=== PATIENT | female | born 1945 | race Caucasian/White ===

== ENCOUNTER → 2019-12-09 10:15 | Outpatient (CLI) | payer MEDICARE, SELFPAY ==
[2019-12-10 20:59] LABS: COVID19 Sendout Not Detected (Not Detect)
== END ==
PROVIDERS: Family Provider Internal Medicine; PCP Family Medicine; Visit Provider Nurse Practitioner
DX: Z01.812 Encounter for preprocedural laboratory examination (principal)
CPT/HCPCS: 87635

== ENCOUNTER 2019-12-12 07:37 | Day surgery (SDC) | payer MEDICARE, SELFPAY ==
[2019-12-12] VITALS (7 sets, daily range): BP systolic 93–108; BP diastolic 53–67; PULSE 59–87; RESP 11–16; TEMP 35.8–36.6; O2SAT 96–99; BMI 25.8
--- NOTE | 2019-12-12 08:01 | PM.HP.1 ---
History of Present Illness History of Present Illness Date Patient Seen: 12/12/19 Time Patient Seen: 08:08 Chief complaint: [id number] SCREENING COLONOSCOPY Narrative: The patient presents for colorectal sreening. Id previous colonoscopy 3 and half years ago that demonstrated numerous adenomatous polyps which were removed. No personal or family history of colon cancer. On further history denies any recent gastrointestinal symptoms. No nausea, vomiting, abdominal pain, loss of appetite, unexplained weight loss, change in bowel habits, diarrhea, constipation, melena, hematochezia, or bright red blood per rectum. Patient History Medical History (Updated 12/12/19 @ 08:08 by Ehsan Roman MD) Anxiety (Acute) Arthritis (Acute) Atrial fibrillation (Acute) Depression (Acute) GERD (gastroesophageal reflux disease) (Acute) Hepatitis A (Acute) Neuropathy (Acute) Seizures (Acute) Skin cancer (Acute) Surgical History (Updated 12/12/19 @ 08:08 by Ehsan Roman MD) H/O hysterectomy for benign disease (Acute) History of pelvic surgery (Acute) Hx of tonsillectomy (Acute) Meds Home Medications and Allergies Home Medications Medication Instructions Recorded Confirmed Type CA PANTOTHENATE/FOLIC ACID/VIT 1 tab PO Q DAY #0 01/15/11 History (MULTIVITAMIN) Calcium Carbonate/Vitamin D 1 tab PO Q DAY #0 01/15/11 History (#CALCIUM 600/VITAMIN D) Fish Oil (#OMEGA 3) 1,000 mg PO BID #0 01/15/11 History METRONIDAZOLE (#METROGEL) 0.75 TP BIDPRN #0 01/15/11 History Venlafaxine Hydrochloride 225 mg PO Q DAY #0 01/15/11 History (#EFFEXOR) Vitamin B-12 100 mcg PO QDAY #0 01/15/11 History amoxicillin 500 mg PO BID PRN #0 01/15/11 History clonazepam [Klonopin] 1.5 mg PO HS #0 01/15/11 History polyethylene glycol 3350 [Miralax] 17 gm PO PRN #0 01/15/11 History topiramate [Topamax] 25 mg PO BID #0 01/15/11 History ziprasidone HCl [Geodon] 100 mg PO HS #0 01/22/11 History RANITIDINE HCL (Ranitidine HCl) 150 mg PO BID #180 01/28/11 Rx amoxicillin 500 mg PO BID #180 01/28/11 Rx esomeprazole magnesium [Nexium] 40 mg PO BIDAC #180 01/28/11 Rx nabumetone 750 mg PO BID #180 01/28/11 Rx Allergies Allergy/AdvReac Type Severity Reaction Status Date / Time lithium Allergy Unknown Swelling Verified 12/12/19 07:06 tetracycline Allergy Unknown Hives Verified 12/12/19 07:06 acetaminophen [From Fioricet] Allergy Seizure Verified 12/12/19 07:57 butalbital Allergy Verified 12/12/19 07:57 caffeine [From Fioricet] Allergy Seizure Verified 12/12/19 07:57 gabapentin Allergy Verified 12/12/19 07:57 Review of Systems Review of Systems Narrative: A 10 point review of systems is negative except as noted in the HPI Exam Narrative Exam Narrative: General-no acute distress, well nourished HEENT-moist mucous membranes, no scleral icterus Neck-supple, no lymphadenopathy Chest- non labored respirations, clear to auscultation bilaterally Cardiac-regular rate no peripheral edema Abdomen-soft, nontender, non distended Extremities-warm, well perfused Neurological-alert and oriented, no focal deficits Assessment & Plan Assessment and plan (1) Screening for colon cancer: Status: Acute Assessment & Plan narrative: The patient requires colorectal screening and colonoscopy is recommended. Technical details were discussed. Risks, benefits, alternatives explained. Risks including but not limited to myocardial infarction, aspiration, bleeding, pain, missed lesion, incomplete examination, need for further radiographic studies, colonic perforation, and need for major abdominal surgery were discussed. All questions were answered to their satisfaction, and they are in agreement with this plan. COVID-19 COVID-19 status: Negative
[2019-12-12] MEDS: LACTATED RINGERS 1,000 ML 200 ML IV (08:26)
[2019-12-12] MEDS: fentaNYL 250 MCG/5 ML INJ IV (08:37)
[2019-12-12] MEDS: MIDAZOLAM 5 MG/5 ML VIAL IV ×3 (08:37→08:48)
--- NOTE | 2019-12-12 09:11 | P.OP.ENDO_ITS ---
Operative Date/Time/Diagnoses Date of procedure: 12/12/19 Time of procedure: 09:11 Pre-op diagnosis: History of adenomatous polyps, screening colonoscopy Post-op diagnosis: same Procedure & Clinicians Study performed: Colonoscopy Same procedure as scheduled: Yes Indications: 74-year-old woman with history of adenomatous polyps present his ro utine screening Surgeon: Ehsan Roman Procedure Notes SCOAP/Timeout: Performed Procedure in detail: Patient placed in left lateral decubitus position. Time out was performed. Procedural sedation was administered with Versed and Fentanyl. A rectal exam demonstrated no external hemorrhoids no internal masses. Colonoscopy scope was placed into the rectum and advanced through the colon to the cecum. The ileocecal valve was identified. The scope was then slowly withdrawn examining colon thoroughly in all directions. The colonoscopy was notable for the following 1. No masses or polyps 2. Quality of prep fair 3. Grade 1 internal hemorrhoids 4. Tortuous sigmoid colon Scope withdrawal time: 11 Sedation minutes: 26 Findings: internal hemorrhoids Complications: none Impression: Normal colonoscopy Post-procedure Recommendations: Colonscopy in 10 years Disposition: same day surgery
== END 2019-12-12 10:42 | disposition home or self-care (01) ==
PROVIDERS: Family Provider Internal Medicine; PCP Family Medicine; Referring Provider Surgery; Visit Provider Surgery
PROC: 0DJD8ZZ Inspection of Lower Intestinal Tract, Via Natural or Artificial Opening Endoscopic (ICD-10-PCS; CPT 45378; principal; 2019-12-12 08:30)
DX: Z12.11 Encounter for screening for malignant neoplasm of colon (principal); Z86.010 Personal history of colon polyps; K64.0 First degree hemorrhoids
CPT/HCPCS: G0105; 99152; 99153; J2250; J3010

== ENCOUNTER 2022-10-16 13:41 | Emergency (ER) | payer MEDICARE, SELFPAY ==
[2022-10-16] VITALS (14 sets, daily range): BP systolic 124–151; BP diastolic 61–100; PULSE 72–120; RESP 17–22; TEMP 36.4; O2SAT 94–99
--- NOTE | 2022-10-16 13:47 | DI.CT.S_ITS ---
PROCEDURE: CT HEAD/BRAIN WO CON INDICATIONS: fall with head injury TECHNIQUE: Noncontrast 4.5 mm thick angled axial sections acquired from the foramen magnum to the vertex, with coronal and sagittal reformats. For radiation dose reduction, the following was used: automated exposure control, adjustment of mA and/or kV according to patient size. COMPARISON: None. FINDINGS: Image quality: Excellent. CSF spaces: Basal cisterns are patent. No extra-axial fluid collections. The ventricles are symmetric in size and shape. Brain: No intracranial bleeds or masses. There is cerebral volume loss for age, with resultant ventricular and sulcal prominence. There are periventricular and deep white matter chronic small vessel ischemic changes. There is intracranial internal carotid artery atherosclerosis. Skull and face: Calvarium and visualized facial bones appear intact, without suspicious lesions. Left lobe is definitely abnormal, it is smaller than the right globe and has extensive increased density within it, as well as some calcification. Sinuses: Visualized sinuses and mastoids are clear. IMPRESSION: 1. No acute intracranial process. 2. 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 The globe is small. There is significant increased density with calcification. Differential includes prior trauma with hemorrhage which has not resorbed. Ocular tumor is not excluded. Recommend clinical correlation. Comment: Findings were discussed with Dr. Moreno at the time of study dictation. Dictated by: Tomas Pereira M.D. on 10/16/2022 at 14:48 Approved by: Tomas Pereira M.D. on 10/16/2022 at 15:06
--- NOTE | 2022-10-16 13:48 | DI.RAD.S_ITS ---
PROCEDURE: XR CHEST 1V INDICATIONS: chest pain TECHNIQUE: One view of the chest was acquired. COMPARISON: [facility], CR, XR CHEST 1 VIEW, 01/20/2018, 14:08. FINDINGS: Surgical changes and devices: None. Lungs and pleura: Lungs are clear. No pleural effusions or pneumothorax. Mediastinum: Mediastinal contours appear normal. Heart size is normal. Bones and chest wall: No suspicious bony lesions. Overlying soft tissues appear unremarkable. IMPRESSION: No acute cardiopulmonary disease. Dictated by: Serena Munguia M.D. on 10/16/2022 at 15:13 Approved by: Serena Munguia M.D. on 10/16/2022 at 15:14
--- NOTE | 2022-10-16 13:51 | ED_ITS ---
HPI - Weakness General Chief complaint: Weakness Stated complaint: unwell x1 week, jaw pain, possible fall Time Seen by Provider: 10/16/22 13:47 History of Present Illness HPI Narrative: 77-year-old female nonsmoker with history of multiple falls and overall a relatively poor historian presents by EMS for evaluation of generalized weakness that has been present for at least a few days. She thinks maybe she fell yesterday but it is unclear. She is concerned because her jaw was popping but no longer is. She denies any fever or chills. She is had no blurred vision or trouble with speech. She is had no had or neck pain. She denies any chest pain or shortness of breath and has had no cough. She denies nausea, vomiting or diarrhea. She denies any change in her medications. She denies any difficulty with urination or bowel movements. She has been dealing with a rash on her back for at least a few months and is particularly itchy today. EMS evaluated her and states that she appears to be at her baseline. There is no evidence of trauma per their exam, no focal findings. Related Data Home Medications Medication Instructions Recorded Confirmed Fish Oil (#OMEGA 3) 1,000 mg PO BID ##0 01/15/11 12/12/19 METRONIDAZOLE (#METROGEL) 0.75 dose TP BIDPRN ##0 01/15/11 12/12/19 Venlafaxine Hydrochloride 75 mg PO DAILY ##0 01/15/11 (#EFFEXOR) topiramate 25 mg sprinkle capsule 200 mg PO DAILY ##0 01/15/11 12/12/19 (Topamax) aspirin 81 mg tablet,delayed 81 mg PO DAILY 12/12/19 12/12/19 release (Himanshu Low Dose Aspirin) metoprolol tartrate 25 mg tablet 12.5 mg PO BID 12/12/19 12/12/19 trazodone 100 mg tablet 200 mg PO DAILY 12/12/19 12/12/19 Previous Rx's Medication Instructions Recorded esomeprazole magnesium 40 mg 40 mg PO BIDAC ##180 01/28/11 capsule,delayed release (Nexium) Allergies Allergy/AdvReac Type Severity Reaction Status Date / Time lithium Allergy Unknown Swelling Verified 10/16/22 15:32 tetracycline Allergy Unknown Hives Verified 10/16/22 15:32 acetaminophen [From Fioricet] Allergy Seizure Verified 10/16/22 15:32 butalbital Allergy Verified 10/16/22 15:32 caffeine [From Fioricet] Allergy Seizure Verified 10/16/22 15:32 gabapentin Allergy Verified 10/16/22 15:32 Review of Systems Review of Systems Narrative: GENERAL: See HPI HEENT: Denies sinus pain, ear pain, sore throat, difficulty swallowing, dizziness. RESPIRATORY: Denies dyspnea, cough, wheezing, hemoptysis, sputum. CARDIOVASCULAR: See HPI GASTROINTESTINAL: Denies nausea, vomiting, abdominal pain, diarrhea, co nstipation, melena. : Denies dysuria, frequency, incontinence, hematuria, urinary retention. MUSCULOSKELETAL: d see HPI SKIN: Denies rash, skin lesions, or other NEUROLOGIC: Denies weakness, headache, numbness, change in speech, confusion, seizures, incoordination. PSYCHIATRIC: No concerning psychosocial issues. 12 point review of systems is negative except for those stated above Patient History Medical History Anxiety Arthritis Atrial fibrillation Depression GERD (gastroesophageal reflux disease) Hepatitis A Neuropathy Seizures Skin cancer Surgical History H/O hysterectomy for benign disease History of pelvic surgery Hx of tonsillectomy Social History household members: none Smoking Status: Never smoker alcohol intake: current Smoking Status: Never smoker alcohol intake frequency: holidays/special occasions only Substance Use Type: does not use Exam Narrative Exam Narrative: GENERAL: [77] year old patient appears stated age. Well-developed patient, in mild distress. Very hard of hearing, alert and oriented caught GCS 15 HEAD: Atraumatic. Normocephalic. EYES: Pupils equal round and reactive. Extraocular motions intact. No scleral icterus. No injection or drainage. ENT: Dry mucous membranes Nose without bleeding, purulent drainage. Throat without erythema, tonsillar hypertrophy or exudate. Airway patent. NECK: Trachea midline. Non tender CARDIOVASCULAR: Regular rate and rhythm without murmurs, gallops, or rubs. RESPIRATORY: Clear to auscultation. Breath sounds equal bilaterally. No wheezes, rales, or rhonchi. GASTROINTESTINAL: Abdomen soft, non-tender, nondistended. EXTREMITIES: No edema or joint tenderness. BACK: Nontender without deformity or crepitance. No flank tenderness. NEURO: AOx3. SKIN: Mild pruritic rash on back with some scabs that are slightly excoriated, poor skin turgor Initial Vital Signs Initial Vital Signs: Vital Signs Pulse Rate 97 H 10/16/22 13:48 Pulse Oximetry 96 10/16/22 13:48 Course Orders Ordered: Discontinued Medications Sodium Chloride (Normal Saline 0.9%) 1,000 mls @ 1,000 mls/hr IV BOLUS ONE Stop: 10/16/22 14:46 Last Infusion: 10/16/22 16:46 Dose: 0 mls/hr Documented By: Admin: 10/16/22 14:55 Dose: 1,000 mls/hr Documented By: AT Vital Signs Vital signs: Vital Signs - 8 hr 10/16/22 14:04 10/16/22 13:48 10/16/22 14:00 Temperature 97.6 F Pulse Rate 92 H 97 H 92 H Pulse Rate [Orthostatic Lying] Pulse Rate [Orthostatic Sitting] Pulse Rate [Orthostatic Standing] Respiratory Rate 18 22 Blood Pressure 124/74 Blood Pressure [Orthostatic Lying] Blood Pressure [Orthostatic Sitting] Blood Pressure [Orthostatic Standing] Pulse Oximetry 94 96 97 Oxygen Delivery Method Room Air 10/16/22 14:30 10/16/22 14:55 10/16/22 14:55 Temperature Pulse Rate 81 73 Pulse Rate [Orthostatic Lying] Pulse Rate [Orthostatic Sitting] Pulse Rate [Orthostatic Standing] Respiratory Rate 18 17 Blood Pressure 126/61 Blood Pressure [Orthostatic Lying] Blood Pressure [Orthostatic Sitting] Blood Pressure [Orthostatic Standing] Pulse Oximetry 96 99 Oxygen Delivery Method Room Air 10/16/22 15:00 10/16/22 15:00 10/16/22 15:30 Temperature Pulse Rate 72 Pulse Rate [Orthostatic Lying] Pulse Rate [Orthostatic Sitting] Pulse Rate [Orthostatic Standing] Respiratory Rate Blood Pressure 135/66 133/76 Blood Pressure [Orthostatic Lying] Blood Pressure [Orthostatic Sitting] Blood Pressure [Orthostatic Standing] Pulse Oximetry 99 Oxygen Delivery Method Room Air 10/16/22 15:30 10/16/22 16:00 10/16/22 16:00 Temperature Pulse Rate 75 79 Pulse Rate [Orthostatic Lying] Pulse Rate [Orthostatic Sitting] Pulse Rate [Orthostatic Standing] Respiratory Rate 18 17 Blood Pressure 136/77 Blood Pressure [Orthostatic Lying] Blood Pressure [Orthostatic Sitting] Blood Pressure [Orthostatic Standing] Pulse Oximetry 97 96 Oxygen Delivery Method Room Air Room Air 10/16/22 16:30 10/16/22 16:30 10/16/22 16:55 Temperature Pulse Rate 78 Pulse Rate [Orthostatic Lying] Pulse Rate [Orthostatic Sitting] Pulse Rate [Orthostatic Standing] 120 H Respiratory Rate 20 Blood Pressure 141/67 H Blood Pressure [Orthostatic Lying] Blood Pressure [Orthostatic Sitting] Blood Pressure [Orthostatic Standing] 151/100 H Pulse Oximetry 96 Oxygen Delivery Method Room Air 10/16/22 16:59 10/16/22 17:00 10/16/22 17:00 Temperature Pulse Rate 95 H 94 H Pulse Rate [Orthostatic Lying] Pulse Rate [Orthostatic Sitting] Pulse Rate [Orthostatic Standing] Respiratory Rate 22 21 Blood Pressure 144/73 H Blood Pressure [Orthostatic Lying] Blood Pressure [Orthostatic Sitting] Blood Pressure [Orthostatic Standing] Pulse Oximetry 98 98 Oxygen Delivery Method Room Air 10/16/22 16:56 10/16/22 16:59 Temperature Pulse Rate Pulse Rate [Orthostatic Lying] 95 H Pulse Rate [Orthostatic Sitting] 110 H Pulse Rate [Orthostatic Standing] Respiratory Rate Blood Pressure Blood Pressure [Orthostatic Lying] 132/67 Blood Pressure [Orthostatic Sitting] 133/71 Blood Pressure [Orthostatic Standing] Pulse Oximetry Oxygen Delivery Method MDM - Weakness Lab Data 10/16/22 14:52 10/16/22 14:43 Labs: Lab Results 10/16/22 10/16/22 10/16/22 Range/Units 14:43 14:52 14:52 WBC (4.5-11.0) X10^3/uL RBC (4.0-5.2) X10^6/uL Hgb (12.0-16.0) g/dL Hct (36-46) % MCV (80-100) fL MCH (26-34) PG MCHC (30-36) % RDW (11.6-14.8) % Plt Count (150-400) X10^3/uL Neut % (Auto) (50-75) % Lymph % (Auto) (25-40) % [place] % (Auto) (3-14) % Eos % (Auto) (2-4) % Baso % (Auto) (0-2) % Neut # (Auto) (7496-2749) /uL Lymph # (Auto) (1925-7497) /uL [place] # (Auto) (0-900) /uL Eos # (Auto) (0-450) /uL Baso # (Auto) (0-100) /uL PT 11.4 (10.1-12.7) SECONDS INR 1.0 (0.9-1.3) Sodium 138 (137-145) mmol/L Potassium 4.0 (3.4-5.1) mmol/L Chloride 110 H (98-107) mmol/L Carbon Dioxide 24 (22-32) mmol/L BUN 15 (7-17) mg/dL Creatinine 0.90 (0.52-1.04) mg/dL Estimated GFR > 60 (>60) mL/min BUN/Creatinine Ratio 16.7 (6-22) Glucose 91 (80-110) mg/dL Calcium 8.9 (8.4-10.2) mg/dL Total Bilirubin 0.3 (0.2-1.3) mg/dL AST 22 (14-36) IU/L ALT 20 (<35) IU/L Alkaline Phosphatase 69 (38-126) U/L Total Creatine Kinase 55 (30-135) U/L CK-MB (CK-2) TNP CK-MB (CK-2) Rel Index TNP Troponin I < 0.012 (0.01-0.034) ng/mL NT-Pro-B Natriuret Pep 163 (<450) pg/mL Total Protein 5.9 L (6.3-8.2) g/dL Albumin 3.5 (3.5-5.0) g/dL Globulin 2.4 (1.7-4.1) g/dL Albumin/Globulin Ratio 1.5 (1.0-2.8) Lipase 52 (23-300) U/L Procalcitonin 0.05 (<0.5) ng/mL Salicylates < 1.0 (<20) mg/dL U Opiates 300ng/mL cut (Negative) Ur Oxycodone Screen (Negative) Urine Methadone Screen (Negative) Acetaminophen < 10 (10-30) ug/mL Ur Barbiturates Screen (Negative) U Tricyclic Antidepress (Negative) Ur Phencyclidine Scrn (Negative) Ur Amphetamines Screen (Negative) U Methamphetamines Scrn (Negative) Ur MDMA Scrn (Ecstasy) (Negative) U Benzodiazepines Scrn (Negative) Urine Cocaine Screen (Negative) U Marijuana (THC) Screen (Negative) Ethyl Alcohol < 10 ( - 10) mg/dL 10/16/22 10/16/22 Range/Units 14:52 16:58 WBC 4.3 L (4.5-11.0) X10^3/uL RBC 4.38 (4.0-5.2) X10^6/uL Hgb 14.0 (12.0-16.0) g/dL Hct 41.6 (36-46) % MCV 95.1 (80-100) fL MCH 32.0 (26-34) PG MCHC 33.7 (30-36) % RDW 13.6 (11.6-14.8) % Plt Count 232 (150-400) X10^3/uL Neut % (Auto) 52.3 (50-75) % Lymph % (Auto) 33.2 (25-40) % [place] % (Auto) 11.8 (3-14) % Eos % (Auto) 1.5 L (2-4) % Baso % (Auto) 1.2 (0-2) % Neut # (Auto) 2300 (9494-9931) /uL Lymph # (Auto) 1400 (3933-4882) /uL [place] # (Auto) 500 (0-900) /uL Eos # (Auto) 100 (0-450) /uL Baso # (Auto) 100 (0-100) /uL PT (10.1-12.7) SECONDS INR (0.9-1.3) Sodium (137-145) mmol/L Potassium (3.4-5.1) mmol/L Chloride (98-107) mmol/L Carbon Dioxide (22-32) mmol/L BUN (7-17) mg/dL Creatinine (0.52-1.04) mg/dL Estimated GFR (>60) mL/min BUN/Creatinine Ratio (6-22) Glucose (80-110) mg/dL Calcium (8.4-10.2) mg/dL Total Bilirubin (0.2-1.3) mg/dL AST (14-36) IU/L ALT (<35) IU/L Alkaline Phosphatase (38-126) U/L Total Creatine Kinase (30-135) U/L CK-MB (CK-2) CK-MB (CK-2) Rel Index Troponin I (0.01-0.034) ng/mL NT-Pro-B Natriuret Pep (<450) pg/mL Total Protein (6.3-8.2) g/dL Albumin (3.5-5.0) g/dL Globulin (1.7-4.1) g/dL Albumin/Globulin Ratio (1.0-2.8) Lipase (23-300) U/L Procalcitonin (<0.5) ng/mL Salicylates (<20) mg/dL U Opiates 300ng/mL cut Negative (Negative) Ur Oxycodone Screen Negative (Negative) Urine Methadone Screen Negative (Negative) Acetaminophen (10-30) ug/mL Ur Barbiturates Screen Negative (Negative) U Tricyclic Antidepress Negative (Negative) Ur Phencyclidine Scrn Negative (Negative) Ur Amphetamines Screen Negative (Negative) U Methamphetamines Scrn Negative (Negative) Ur MDMA Scrn (Ecstasy) Negative (Negative) U Benzodiazepines Scrn Negative (Negative) Urine Cocaine Screen Negative (Negative) U Marijuana (THC) Screen Negative (Negative) Ethyl Alcohol ( - 10) mg/dL Urine Dip Bedside Urine Glucose Negative Bedside Urine Bilirubin - Negative Bedside Urine Ketone - Negative Urine Specific [place] 1.010 Bedside Urine Occult Blood - Negative Bedside Urine pH 6.5 Bedside Urine Protein - Negative Bedside Urine Urobilinogen - Negative Bedside Urine Nitrite - Negative Bedside Urine Leukocytes - Negative Esterase MDM Narrative Medical decision making narrative: [77] year old patient presents with feeling unwell for at least a week Multiple etiologies for patient's symptoms considered including, but not limited to: [Electrolyte abnormality, signs of infection, head injury, urinary tract infection, pneumonia versus other] Prior Charts reviewed in our EMR Primary Historian: patient Labs reviewed and interpreted by myself: No significant abnormal findings require specific intervention Imaging reviewed: Chest x-ray and head CT unremarkable Patient's symptoms improved over duration of stay with above-stated therapies. Patient ambulatory in the department with reassuring history and physical exam, labs, vitals. Findings and discharge diagnosis discussed with patient/family followed by verbalization of understanding Return precautions discussed with patient/family whom verbalize understanding of diagnosis and plan Discharge Plan Departure Patient Disposition: Home Clinical Impression: Weakness, Chronic pruritic rash in adult Instructions: DI for Rash Activity Restrictions/Additional Instructions: *You have been diagnosed with [generalized weakness and chronic rash. As we discussed your history and physical exam as well as labs, CT scan, chest x-ray, EKG are very reassuring and there are no significant findings that would require specific or immediate intervention.] *What to do: *Please continue to take your regular medications as directed. *Please follow up with your primary care provider in 2-3 days, call for an appointment. Let them know you were seen in the Emergency Department and that we ask that you be seen in follow up. We will electronically transmit a record of today's note if your PCP is in our system *Return to Emergency Department if you should have any new, worsening or concerning symptoms, such as [fever greater than 101 F, shaking chills, worsening pain, persistent vomiting or other bothersome symptoms] Prescriptions: No Action Venlafaxine Hydrochloride (#EFFEXOR) 75 mg PO DAILY Qty: 0 Rx Instructions: 37.5 mg at noon METRONIDAZOLE (#METROGEL) 0.75 dose TP BIDPRN Qty: 0 Fish Oil (#OMEGA 3) 1,000 mg PO BID Qty: 0 topiramate [Topamax] 25 MG capsule, sprinkle 200 mg PO DAILY Qty: 0 esomeprazole magnesium [Nexium] 40 MG capsule,delayed release(DR/EC) 40 mg PO BIDAC Qty: 180 3RF aspirin [Himanshu Low Dose Aspirin] 81 mg Tablet,Delayed Release (Dr/Ec) 81 mg PO DAILY trazodone 100 mg tablet 200 mg PO DAILY metoprolol tartrate 25 mg tablet 12.5 mg PO BID Referrals: Alonzo Suh DO [Primary Care Provider] - Stand Alone Forms: Patient Portal/API
[2022-10-16] MEDS: SODIUM CHLORIDE 0.9% 1,000 ML 1000 ML IV (14:55)
[2022-10-16 15:10] LABS: Prothrombin Time 11.4 SECONDS (10.1-12.7)
[2022-10-16 15:21] LABS: Alanine Aminotransferase 20 IU/L (<35); Albumin 3.5 g/dL (3.5-5.0); Albumin Globulin Ratio 1.5 (1.0-2.8); Alkaline Phosphatase 69 U/L (38-126); Aspartate Aminotransferase 22 IU/L (14-36); BUN Creatinine Ratio 16.7 (6-22); Bilirubin Total 0.3 mg/dL (0.2-1.3); Blood Urea Nitrogen 15 mg/dL (7-17); Calcium 8.9 mg/dL (8.4-10.2); Carbon Dioxide 24 mmol/L (22-32); Chloride 110 mmol/L (98-107); Creatine Kinase 55 U/L (30-135); Estimated Glomerular Filt Rate > 60 mL/min (>60); Globulin 2.4 g/dL (1.7-4.1); Glucose 91 mg/dL (80-110); HEMOLYSIS 30 (0-50); Lipase 52 U/L (23-300); Sodium 138 mmol/L (137-145); Total Protein 5.9 g/dL (6.3-8.2)
[2022-10-16 15:22] LABS: Acetaminophen < 10 ug/mL (10-30); Ethanol (ETOH) < 10 mg/dL; Salicylate < 1.0 mg/dL (<20)
[2022-10-16 15:25] LABS: Add Manual Diff / Slide Review NO; Basophils Absolute Auto 100 /uL (0-100); Basophils Percent Auto 1.2 % (0-2); Eosinophils Absolute Auto 100 /uL (0-450); Eosinophils Percent Auto 1.5 % (2-4); Hematocrit 41.6 % (36-46); Lymphocytes Absolute Auto 1400 /uL (1100-4500); Lymphocytes Percent Auto 33.2 % (25-40); Mean Corpuscular HGB Conc 33.7 % (30-36); Mean Corpuscular Volume 95.1 fL (80-100); Monocytes Absolute Auto 500 /uL (0-900); Monocytes Percent Auto 11.8 % (3-14); Neutrophils Absolute Auto 2300 /uL (1500-7000); Neutrophils Percent Auto 52.3 % (50-75); Platelet Count 232 X10^3/uL (150-400); Red Blood Cell Count 4.38 X10^6/uL (4.0-5.2); Red Cell Distribution Width 13.6 % (11.6-14.8); White Blood Cell Count 4.3 X10^3/uL (4.5-11.0)
[2022-10-16 15:34] LABS: NT-proBNP (BNP-Adult 18+) 163 pg/mL (<450); Troponin I < 0.012 ng/mL (0.01-0.034)
[2022-10-16 15:39] LABS: Procalcitonin 0.05 ng/mL (<0.5)
--- NOTE | 2022-10-16 16:13 | PC.NURSE ---
Patient laying on stretcher with eyes closed breathing even and unlabored.
--- NOTE | 2022-10-16 17:09 | PC.NURSE ---
Patient ambulated to bathroom and back to room utilizing walker from home, slow and steady gait.
--- NOTE | 2022-10-16 17:35 | CM.SWNOTE ---
ED SLICER MACHINE OPERATOR/DCP Note Patient is 77 y/o female who presents to ED via EMS due to concern for generalized weakness, concern for her jaw, and GLFs. Patient endorses she pressed her emergency button and EMS brought her here, patient endorses she wanted to come to . Patient endorses her new PCP is Dr. Lul Newton and patient endorses upcoming appt in a few weeks. Patient has [employer], [employer] and [facility] insurance. Per EMR, patient has hx of Anxiety, Arthritis, Afib, Depression, GERD, Hepatitis A, Neuropathy Seizures and skin cancer. 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 SLICER MACHINE OPERATOR enters room to meet with patient, patient presents as A/Ox3, patient endorses she resides in an apartment in [place]. Patient endorses she uses a FWW with seat walker at baseline. Patient endorses she can barely complete all ADLs. Patient endorses she uses paratransit. Patient endorses she has a caregiver 4 hours a week that helps with groceries and laundry. Patient endorses concern for services and the cost. Patient endorses her only income is social security. SLICER MACHINE OPERATOR discusses home health, patient endorses brief hx of engaging in HH and does not want to pursue HH again. SLICER MACHINE OPERATOR confirms this once more and patient declines wanting to pursue home health. SLICER MACHINE OPERATOR discusses [facility] through [facility] to see if patient qualifies for Medicaid, patient endorses agreement to SLICER MACHINE OPERATOR providing patient's information to [facility]. SLICER MACHINE OPERATOR provides patient with senior resource guide. SLICER MACHINE OPERATOR calls Ambar Prescott at [facility] and left with patient information regarding intake for Medicaid and Aging and Disability services. Patient endorses she will need transportation upon d/c. Patient is medically clear for d/c. Plan: patient discharged to home via taxi voucher, [facility] to f/u with patient regarding Medicaid and services. Karie Monk, COUTIERIER
[2022-10-16 17:47] LABS: UR Morphine/Opiate cutoff 300 Negative (Negative); Ur Creatinine Normal (Normal); Ur Specific Gravity Normal (Normal); Urine Amphetamines Negative (Negative); Urine Barbiturates Negative (Negative); Urine Benzodiazepines Negative (Negative); Urine Cocaine Negative (Negative); Urine MDMA Negative (Negative); Urine Methadone Negative (Negative); Urine Methamphetamines Negative (Negative); Urine Oxycodone Negative (Negative); Urine Phencyclidine Negative (Negative); Urine Tetrahydrocannabinol Negative (Negative); Urine Tricyclic Antidepressant Negative (Negative); Urine pH Normal (Normal)
== END 2022-10-16 17:44 | disposition home or self-care (01) ==
PROVIDERS: Emergency Provider Emergency Medicine; Family Provider Internal Medicine; PCP Family Medicine
DX: R53.1 Weakness (principal); L29.9 Pruritus, unspecified; R00.0 Tachycardia, unspecified; S09.90XA Unspecified injury of head, initial encounter; W19.XXXA Unspecified fall, initial encounter
CPT/HCPCS: 36415; 70450; 71045; 80053; 80305; 80320; 80329; 81003; 82550; 83690; 83880; 84145; 84484; 85025; 85610; 93005; 93010; 99284; G0480

== ENCOUNTER 2023-05-25 14:13 | Emergency (ER) | payer MEDICARE, SELFPAY ==
[2023-05-25] VITALS (12 sets, daily range): BP systolic 108–131; BP diastolic 56–71; PULSE 75–90; RESP 14–26; TEMP 36.7; O2SAT 96–99
--- NOTE | 2023-05-25 | DI.CT.S_ITS ---
PROCEDURE: CT PEL WO CON INDICATIONS: PAIN AFTER FALL TECHNIQUE: Noncontrast 3 mm axial sections acquired through the bony pelvis, with coronal and sagittal reformatting. COMPARISON: [facility], CT, CT CERVICAL SPINE WO CON, 05/25/2023, 14:38. [facility], CT, CT HEAD/BRAIN WO CON, 05/25/2023, 14:38. [facility], CR, XR CHEST 1V, 05/25/2023, 14:31. [facility], CR, XR HIP W PEL IF DONE RT 2V, 05/25/2023, 14:31. [facility], CR, XR KNEE RT 3V, 05/25/2023, 14:31. [facility], CR, XR TIBIA FIBULA RT 2V, 05/25/2023, 14:31. FINDINGS: Image quality: There is artifact associated with the metallic hardware. Artifact from the metallic hardware is reduced by metal reconstruction algorithm. Bones: Prior fractures of the left pelvis can be seen, extensive plate and screw fixation. No findings of hardware failure or hardware loosening are seen. No new fractures can be seen, including involving the right pelvis, right acetabulum, and the right proximal femur. No suspicious lytic or blastic lesions are seen. Generalized degenerative changes are seen. Focal L4-L5 degenerative change is seen. Soft tissues: No dilated loops of small bowel are seen. This patient is status post hysterectomy. No adnexal masses are seen. The bladder is relatively decompressed. A mild degree of distal colonic diverticulosis is seen, without findings of active diverticulitis. Moderate rectal wall thickening is seen. IMPRESSION: Negative for acute fracture. Remote left-sided pulse fractures are seen, with plate and screw fixation. Moderate distal rectal wall thickening can be seen. If clinically appropriate, please consider follow-up lower endoscopy for further evaluation. Additional findings: Focal L4-L5 degenerative change Hysterectomy Dictated by: Ke Stewart M.D. on 05/25/2023 at 14:40 Approved by: Ke Stewart M.D. on 05/25/2023 at 14:42
--- NOTE | 2023-05-25 14:17 | DI.RAD.S_ITS ---
PROCEDURE: XR HIP W PEL IF DONE RT 2V INDICATIONS: fall, right hip pain TECHNIQUE: AP pelvis with lateral view(s) of the right hip(s). COMPARISON: [facility], CR, XR PELVIS W BILAT LAT HIPS 3VW, 07/31/2015, 15:12. [facility], CT, CT PEL WO CON, 05/25/2023, 15:00. FINDINGS: Bones: No fractures or dislocations. Pelvic ring appears intact. No suspicious bony lesions. There is screw fixation can be seen involving the left pelvis, without findings of failure or loosening. Soft tissues: The visualized bowel gas pattern is normal. No suspicious soft tissue calcifications. IMPRESSION: No acute bony abnormality. Intact appearing left pelvis hardware. Dictated by: Ke Stewart M.D. on 05/25/2023 at 14:14 Approved by: Ke Stewart M.D. on 05/25/2023 at 14:16
--- NOTE | 2023-05-25 14:24 | DI.CT.S_ITS ---
PROCEDURE: CT HEAD/BRAIN WO CON INDICATIONS: fall TECHNIQUE: Noncontrast 4.5 mm thick angled axial sections acquired from the foramen magnum to the vertex, with coronal and sagittal reformats. For radiation dose reduction, the following was used: automated exposure control, adjustment of mA and/or kV according to patient size. COMPARISON: [facility], CT, CT PEL WO CON, 05/25/2023, 15:00. [facility], CT, CT CERVICAL SPINE WO CON, 05/25/2023, 14:38. [facility], CR, XR CHEST 1V, 05/25/2023, 14:31. [facility], CR, XR HIP W PEL IF DONE RT 2V, 05/25/2023, 14:31. [facility], CR, XR KNEE RT 3V, 05/25/2023, 14:31. [facility], CR, XR TIBIA FIBULA RT 2V, 05/25/2023, 14:31. [facility], CT, CT HEAD/BRAIN WO CON, 10/16/2022, 14:05. FINDINGS: Image quality: This examination is limited by involuntary motion artifact. CSF spaces: Basal cisterns are patent. No extra-axial fluid collections. The ventricles are symmetric in size and shape. Brain: No intracranial bleeds or masses. There is cerebral volume loss for age, with resultant ventricular and sulcal prominence. There are periventricular and deep white matter chronic small vessel ischemic changes. There is intracranial internal carotid artery atherosclerosis. Skull and face: Calvarium and visualized facial bones appear intact, without suspicious lesions. Incidental note is made of hyperostosis frontalis. This is not considered to be pathologic in a woman of this age. An abnormal left globe can be seen, with small size and calcification. Sinuses: Visualized sinuses and mastoids are clear. IMPRESSION: Motion limited study, without an acute abnormality seen. 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 Dictated by: Ke Stewart M.D. on 05/25/2023 at 14:09 Approved by: Ke Stewart M.D. on 05/25/2023 at 14:10
--- NOTE | 2023-05-25 14:24 | DI.RAD.S_ITS ---
PROCEDURE: XR TIBIA FUBULA RT 2V INDICATIONS: fall TECHNIQUE: 2 views of the tibia and fibula were acquired. COMPARISON: [facility], CT, CT PEL WO CON, 05/25/2023, 15:00. [facility], CT, CT CERVICAL SPINE WO CON, 05/25/2023, 14:38. [facility], CT, CT HEAD/BRAIN WO CON, 05/25/2023, 14:38. [facility], CR, XR KNEE RT 3V, 05/25/2023, 14:31. [facility], CR, XR HIP W PEL IF DONE RT 2V, 05/25/2023, 14:31. [facility], CR, XR CHEST 1V, 05/25/2023, 14:31. FINDINGS: (The proximal tibia and fibula are not included within the field of view of this study, yet are seen on the accompanying knee plain films. Bones: No fractures or dislocations. No suspicious bony lesions. Degenerative changes of the ankle can be seen. Soft tissues: No suspicious soft tissue calcifications or masses. IMPRESSION: No definite displaced fractures are seen on these plain films. If there is focal tenderness, or other clinical concern for a fracture not seen on these images in this patient with a given history of trauma, please consider a dedicated CT or a short-term followup plain film series (in 1-2 weeks) for further evaluation. Dictated by: Ke Stewart M.D. on 05/25/2023 at 14:16 Approved by: Ke Stewart M.D. on 05/25/2023 at 14:17
--- NOTE | 2023-05-25 14:24 | DI.CT.S_ITS ---
PROCEDURE: CT CERVICAL SPINE WO CON INDICATIONS: fall TECHNIQUE: Noncontrast 3 mm thick sections acquired from the skull base to the T4 level. Sagittal and coronal reformats were then constructed. For radiation dose reduction, the following was used: automated exposure control, adjustment of mA and/or kV according to patient size. COMPARISON: [facility], CT, CT PEL WO CON, 05/25/2023, 15:00. [facility], CT, CT HEAD/BRAIN WO CON, 05/25/2023, 14:38. [facility], CR, XR CHEST 1V, 05/25/2023, 14:31. [facility], CR, XR HIP W PEL IF DONE RT 2V, 05/25/2023, 14:31. FINDINGS: Image quality: Excellent. Bones: No fractures or dislocations. Visualized superior ribs are intact. Focal degenerative change is seen involving the C1-C2 interface anteriorly. There is mild to moderate disc space narrowing seen at C4-C5 and C5-C6, with at least moderate disc space narrowing at C6-C7, with associated endplate irregularity and sclerosis. Multiple levels of facet hypertrophy can be seen. Soft tissues: Prevertebral soft tissues are normal in thickness. No paravertebral hematomas. No apical pneumothoraces. IMPRESSION: No displaced fracture or traumatic subluxation. Degenerative changes are seen, which are worst at the C6-C7 level. Dictated by: Ke Stewart M.D. on 05/25/2023 at 14:07 Approved by: Ke Stewart M.D. on 05/25/2023 at 14:09
--- NOTE | 2023-05-25 14:26 | DI.RAD.S_ITS ---
PROCEDURE: XR CHEST 1V INDICATIONS: chest pain TECHNIQUE: One view of the chest was acquired. COMPARISON: [facility], CR, XR CHEST 1 VIEW, 01/20/2018, 14:08. [facility], CT, CT PEL WO CON, 05/25/2023, 15:00. [facility], CT, CT CERVICAL SPINE WO CON, 05/25/2023, 14:38. [facility], CT, CT HEAD/BRAIN WO CON, 05/25/2023, 14:38. [facility], CR, XR KNEE RT 3V, 05/25/2023, 14:31. [facility], CR, XR HIP W PEL IF DONE RT 2V, 05/25/2023, 14:31. [facility], CR, XR TIBIA FIBULA RT 2V, 05/25/2023, 14:31. [facility], CR, XR CHEST 1V, 10/16/2022, 14:02. FINDINGS: Surgical changes and devices: None. Lungs and pleura: An incomplete inspiratory result is noted, causing a crowded appearance to the lung markings. No focal infiltrates are seen. No pneumothorax or significant pleural effusions are seen. Mediastinum: The cardiac contours are within normal limits. The aorta demonstrates calcification and tortuosity. Bones and chest wall: No suspicious bony lesions. Age-appropriate bony degenerative changes are seen. Overlying soft tissues appear unremarkable. IMPRESSION: Low lung volumes, without an acute abnormality seen by plain film. Dictated by: Ke Stewart M.D. on 05/25/2023 at 14:20 Approved by: Ke Stewart M.D. on 05/25/2023 at 14:21
--- NOTE | 2023-05-25 14:26 | DI.RAD.S_ITS ---
PROCEDURE: XR KNEE RT 3V INDICATIONS: fall TECHNIQUE: 3 views of the knee were acquired. COMPARISON: [facility] [place], CR, BILATERAL KNEE 3VW, 07/31/2015, 15:03. [facility], CT, CT PEL WO CON, 05/25/2023, 15:00. [facility], CT, CT CERVICAL SPINE WO CON, 05/25/2023, 14:38. [facility], CT, CT HEAD/BRAIN WO CON, 05/25/2023, 14:38. [facility], CR, XR HIP W PEL IF DONE RT 2V, 05/25/2023, 14:31. [facility], CR, XR CHEST 1V, 05/25/2023, 14:31. [facility], CR, XR TIBIA FIBULA RT 2V, 05/25/2023, 14:31. FINDINGS: Bones: No fractures or dislocations. No suspicious bony lesions. Degenerative changes are seen, including irregular osteophytes. Soft tissues: There is a mild right knee joint effusion. No suspicious soft tissue calcifications. IMPRESSION: Mild right knee joint effusion. Degenerative changes, with irregular osteophytes, without an acute fracture seen on these plain films. If there is point tenderness (or other clinical suspicion for a fracture not seen on these images) then a dedicated CT could be considered for further evaluation, if clinically appropriate. Dictated by: Ke Stewart M.D. on 05/25/2023 at 14:17 Approved by: Ke Stewart M.D. on 05/25/2023 at 14:20
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
--- NOTE | 2023-05-25 15:25 | ED_ITS ---
HPI - Fall General Chief Complaint: Trauma Stated Complaint: r hip pain Time Seen by Provider: 05/25/23 14:55 Source: patient and EMS Mode of arrival: EMS History of Present Illness HPI Narrative: Patient 77-year-old female with history of chronic left hip pain complains of right hip pain after fall today. She falls multiple times regularly and has for years. She walks with a walker. She can only see out of her right eye. She has recently been in assisted living for the last 2 months which she reports is her problem. She fell today getting out of bed but does not unusual for her. She is on aspirin but no other anticoagulation medication. She has no other injuries no head injury no numbness tingling or weakness. She does found to have multiple small wounds all over her abdomen and arm Related Data Home Medications Medication Instructions Recorded Confirmed Fish Oil (#OMEGA 3) 1,000 mg PO BID ##0 01/15/11 12/12/19 METRONIDAZOLE (#METROGEL) 0.75 dose TP BIDPRN ##0 01/15/11 12/12/19 Venlafaxine Hydrochloride 75 mg PO DAILY ##0 01/15/11 (#EFFEXOR) topiramate 25 mg sprinkle capsule 200 mg PO DAILY ##0 01/15/11 12/12/19 (Topamax) aspirin 81 mg tablet,delayed 81 mg PO DAILY 12/12/19 12/12/19 release (Himanshu Low Dose Aspirin) metoprolol tartrate 25 mg tablet 12.5 mg PO BID 12/12/19 12/12/19 trazodone 100 mg tablet 200 mg PO DAILY 12/12/19 12/12/19 Previous Rx's Medication Instructions Recorded esomeprazole magnesium 40 mg 40 mg PO BIDAC ##180 01/28/11 capsule,delayed release (Nexium) mupirocin 2 % topical ointment 1 applictn topical BID #15 grams 05/25/23 Allergies Allergy/AdvReac Type Severity Reaction Status Date / Time lithium Allergy Unknown Swelling Verified 10/16/22 15:32 tetracycline Allergy Unknown Hives Verified 10/16/22 15:32 acetaminophen [From Fioricet] Allergy Seizure Verified 10/16/22 15:32 butalbital Allergy Verified 10/16/22 15:32 caffeine [From Fioricet] Allergy Seizure Verified 10/16/22 15:32 gabapentin Allergy Verified 10/16/22 15:32 Patient History Medical History Anxiety Arthritis Atrial fibrillation Depression GERD (gastroesophageal reflux disease) Hepatitis A Neuropathy Seizures Skin cancer Surgical History H/O hysterectomy for benign disease History of pelvic surgery Hx of tonsillectomy Social History household members: none Smoking Status: Never smoker alcohol intake: current Smoking Status: Never smoker alcohol intake frequency: holidays/special occasions only Substance Use Type: does not use Exam Initial Vital Signs Initial Vital Signs: Vital Signs Pulse Rate 78 05/25/23 14:19 Respiratory Rate 22 05/25/23 14:19 Blood Pressure 117/66 05/25/23 14:19 Pulse Oximetry 98 05/25/23 14:19 GENERAL: Alert 77-year-old female no acute distress HEENT: Head atraumatic, face symmetric right eye extraocular muscle intact CARDIOVASCULAR: Regular rate and rhythm without murmurs, rubs or gallops. RESPIRATORY: Breath sounds equal bilaterally, no wheezes rales or rhonchi. ABDOMEN: Soft, nontender. Normoactive bowel sounds all 4 quadrants. No guarding or rebound. EXTREMITIES: Normal range of motion, no clubbing or edema. Neurovascularly intact. Legs are of equal length she is moving them no significant pain with internal external rotation of her hip. NEUROLOGICAL: Alert and oriented x4.Normal gait and speech. SKIN: Multiple sores all over abdomen and arms. No obvious abscesses or cellulitis looks like pick [place] there some on her back as well Course Orders Ordered: ED Orders 05/25/23 14:17 XR hip w pel if done RT 2V Stat 05/25/23 14:24 CT cervical spine wo con Stat CT head/brain wo con Stat XR tibia fibula RT 2V Stat 05/25/23 14:26 XR chest 1V Stat XR knee RT 3V Stat EKG-12 Lead Stat 05/25/23 15:26 Complete Blood Count AUTO DIFF Stat Comprehensive Metabolic Panel Stat Lipase Stat Magnesium Stat PTT Partial Thromboplastin Renny Stat Prothrombin Time INR Stat Troponin & CK Cardiac Panel Stat Vital Signs Vital signs: Vital Signs - 8 hr 05/25/23 14:19 05/25/23 14:19 05/25/23 14:30 Temperature Pulse Rate 78 76 Respiratory Rate 22 17 Blood Pressure 117/66 Pulse Oximetry 98 97 Oxygen Delivery Method 05/25/23 14:31 05/25/23 15:03 05/25/23 15:04 Temperature 98.1 F Pulse Rate 75 85 83 Respiratory Rate 18 16 14 Blood Pressure 117/66 Pulse Oximetry 98 99 99 Oxygen Delivery Method Room Air 05/25/23 15:04 05/25/23 15:30 05/25/23 15:30 Temperature Pulse Rate 89 Respiratory Rate 26 H Blood Pressure 120/61 131/71 Pulse Oximetry 99 Oxygen Delivery Method 05/25/23 16:00 05/25/23 16:01 05/25/23 16:01 Temperature Pulse Rate 82 84 Respiratory Rate 23 23 Blood Pressure 110/56 L Pulse Oximetry 98 98 Oxygen Delivery Method MDM - Fall Lab Data 05/25/23 15:26 05/25/23 15:26 Labs: Lab Results 05/25/23 Range/Units 15:26 WBC 9.4 (4.5-11.0) X10^3/uL RBC 4.59 (4.0-5.2) X10^6/uL Hgb 14.4 (12.0-16.0) g/dL Hct 43.5 (36-46) % MCV 94.7 (80-100) fL MCH 31.3 (26-34) PG MCHC 33.1 (30-36) % RDW 14.5 (11.6-14.8) % Plt Count 255 (150-400) X10^3/uL Neut % (Auto) 77.7 H (50-75) % Lymph % (Auto) 13.0 L (25-40) % Mccracken % (Auto) 7.9 (3-14) % Eos % (Auto) 0.7 L (2-4) % Baso % (Auto) 0.7 (0-2) % Neut # (Auto) 7300 H (2860-3391) /uL Lymph # (Auto) 1200 (2875-7509) /uL Mccracken # (Auto) 700 (0-900) /uL Eos # (Auto) 100 (0-450) /uL Baso # (Auto) 100 (0-100) /uL PT 10.9 (9.4-12.5) SECONDS INR 1.0 (0.9-1.3) APTT 27 (25.1-36.5) SECONDS Sodium 139 (137-145) mmol/L Potassium 4.4 (3.4-5.1) mmol/L Chloride 109 H (98-107) mmol/L Carbon Dioxide 25 (22-32) mmol/L BUN 23 H (7-17) mg/dL Creatinine 0.97 (0.52-1.04) mg/dL Estimated GFR 59 L (>60) mL/min BUN/Creatinine Ratio 23.7 H (6-22) Glucose 92 (80-110) mg/dL Calcium 10.1 (8.4-10.2) mg/dL Magnesium 2.0 (1.6-2.3) mg/dL Total Bilirubin 0.5 (0.2-1.3) mg/dL AST 21 (14-36) IU/L ALT 19 (<35) IU/L Alkaline Phosphatase 72 (38-126) U/L Total Creatine Kinase 25 L (30-135) U/L Troponin I < 0.012 (0.01-0.034) ng/mL Total Protein 6.8 (6.3-8.2) g/dL Albumin 3.9 (3.5-5.0) g/dL Globulin 2.9 (1.7-4.1) g/dL Albumin/Globulin Ratio 1.3 (1.0-2.8) Lipase 59 (23-300) U/L Imaging Data Extremity x-ray #1: Radiologist's Impression: PROCEDURE: XR HIP W PEL IF DONE RT 2V INDICATIONS: fall, right hip pain TECHNIQUE: AP pelvis with lateral view(s) of the right hip(s). COMPARISON: [facility], CR, XR PELVIS W BILAT LAT HIPS 3VW, 07/31/2015, 15:12. Formerly [facility], CT, CT PEL WO CON, 05/25/2023, 15:00. FINDINGS: Bones: No fractures or dislocations. Pelvic ring appears intact. No suspicious bony lesions. There is screw fixation can be seen involving the left pelvis, without findings of failure or loosening. Soft tissues: The visualized bowel gas pattern is normal. No suspicious soft tissue calcifications. IMPRESSION: No acute bony abnormality. Intact appearing left pelvis hardware. Dictated by: Ke Stewart M.D. on 05/25/2023 at 14:14 Extremity x-ray #2: Radiologist's Impression: PROCEDURE: XR TIBIA FUBULA RT 2V INDICATIONS: fall TECHNIQUE: 2 views of the tibia and fibula were acquired. COMPARISON: [facility], CT, CT PEL WO CON, 05/25/2023, 15:00. Former[facility], CT, CT CERVICAL SPINE WO CON, 05/25/2023, 14:38. Former[facility], CT, CT HEAD/BRAIN WO CON, 05/25/2023, 14:38. Former[facility], CR, XR KNEE RT 3V, 05/25/2023, 14:31. Former[facility], CR, XR HIP W PEL IF DONE RT 2V, 05/25/2023, 14:31. Former[facility], CR, XR CHEST 1V, 05/25/2023, 14:31. FINDINGS: (The proximal tibia and fibula are not included within the field of view of this study, yet are seen on the accompanying knee plain films. Bones: No fractures or dislocations. No suspicious bony lesions. Degenerative changes of the ankle can be seen. Soft tissues: No suspicious soft tissue calcifications or masses. IMPRESSION: No definite displaced fractures are seen on these plain films. If there is focal tenderness, or other clinical concern for a fracture not seen on these images in this patient with a given history of trauma, please consider a dedicated CT or a short-term followup plain film series (in 1-2 weeks) for further evaluation. Dictated by: Ke Stewart M.D. on 05/25/2023 at 14:16 Extremity x-ray #3: Radiologist's Impression: PROCEDURE: XR KNEE RT 3V INDICATIONS: fall TECHNIQUE: 3 views of the knee were acquired. COMPARISON: [facility], CR, BILATERAL KNEE 3VW, 07/31/2015, 15:03. Former[facility], CT, CT PEL WO CON, 05/25/2023, 15:00. Former[facility], CT, CT CERVICAL SPINE WO CON, 05/25/2023, 14:38. Former[facility], CT, CT HEAD/BRAIN WO CON, 05/25/2023, 14:38. Former[facility], CR, XR HIP W PEL IF DONE RT 2V, 05/25/2023, 14:31. Former[facility], CR, XR CHEST 1V, 05/25/2023, 14:31. [facility], CR, XR TIBIA FIBULA RT 2V, 05/25/2023, 14:31. FINDINGS: Bones: No fractures or dislocations. No suspicious bony lesions. Degenerative changes are seen, including irregular osteophytes. Soft tissues: There is a mild right knee joint effusion. No suspicious soft tissue calcifications. IMPRESSION: Mild right knee joint effusion. Degenerative changes, with irregular osteophytes, without an acute fracture seen on these plain films. If there is point tenderness (or other clinical suspicion for a fracture not seen on these images) then a dedicated CT could be considered for further evaluation, if clinically appropriate. Dictated by: Ke Stewart M.D. on 05/25/2023 at 14:17 Chest x-ray: Radiologist's Impression: PROCEDURE: XR CHEST 1V INDICATIONS: chest pain TECHNIQUE: One view of the chest was acquired. COMPARISON: [facility], CR, XR CHEST 1 VIEW, 01/20/2018, 14:08. Former[facility], CT, CT PEL WO CON, 05/25/2023, 15:00. [facility], CT, CT CERVICAL SPINE WO CON, 05/25/2023, 14:38. Former[facility], CT, CT HEAD/BRAIN WO CON, 05/25/2023, 14:38. [facility], CR, XR KNEE RT 3V, 05/25/2023, 14:31. Former[facility], CR, XR HIP W PEL IF DONE RT 2V, 05/25/2023, 14:31. [facility], CR, XR TIBIA FIBULA RT 2V, 05/25/2023, 14:31. Former[facility], CR, XR CHEST 1V, 10/16/2022, 14:02. FINDINGS: Surgical changes and devices: None. Lungs and pleura: An incomplete inspiratory result is noted, causing a crowded appearance to the lung markings. No focal infiltrates are seen. No pneumothorax or significant pleural effusions are seen. Mediastinum: The cardiac contours are within normal limits. The aorta demonstrates calcification and tortuosity. Bones and chest wall: No suspicious bony lesions. Age-appropriate bony degenerative changes are seen. Overlying soft tissues appear unremarkable. IMPRESSION: Low lung volumes, without an acute abnormality seen by plain film. Dictated by: Ke Stewart M.D. on 05/25/2023 at 14:20 CT scan - head: Radiologist's Impression: PROCEDURE: CT HEAD/BRAIN WO CON INDICATIONS: fall TECHNIQUE: Noncontrast 4.5 mm thick angled axial sections acquired from the foramen magnum to the vertex, with coronal and sagittal reformats. For radiation dose reduction, the following was used: automated exposure control, adjustment of mA and/or kV according to patient size. COMPARISON: [facility], CT, CT PEL WO CON, 05/25/2023, 15:00. [facility], CT, CT CERVICAL SPINE WO CON, 05/25/2023, 14:38. Former[facility], CR, XR CHEST 1V, 05/25/2023, 14:31. [facility], CR, XR HIP W PEL IF DONE RT 2V, 05/25/2023, 14:31. [facility], CR, XR KNEE RT 3V, 05/25/2023, 14:31. [facility], CR, XR TIBIA FIBULA RT 2V, 05/25/2023, 14:31. Former[facility], CT, CT HEAD/BRAIN WO CON, 10/16/2022, 14:05. FINDINGS: Image quality: This examination is limited by involuntary motion artifact. CSF spaces: Basal cisterns are patent. No extra-axial fluid collections. The ventricles are symmetric in size and shape. Brain: No intracranial bleeds or masses. There is cerebral volume loss for age, with resultant ventricular and sulcal prominence. There are periventricular and deep white matter chronic small vessel ischemic changes. There is intracranial internal carotid artery atherosclerosis. Skull and face: Calvarium and visualized facial bones appear intact, without suspicious lesions. Incidental note is made of hyperostosis frontalis. This is not considered to be pathologic in a woman of this age. An abnormal left globe can be seen, with small size and calcification. Sinuses: Visualized sinuses and mastoids are clear. IMPRESSION: Motion limited study, without an acute abnormality seen. 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 Dictated by: Ke Stewart M.D. on 05/25/2023 at 14:09 CT - cervical spine: Radiologist's Impression: PROCEDURE: CT CERVICAL SPINE WO CON INDICATIONS: fall TECHNIQUE: Noncontrast 3 mm thick sections acquired from the skull base to the T4 level. Sagittal and coronal reformats were then constructed. For radiation dose reduction, the following was used: automated exposure control, adjustment of mA and/or kV according to patient size. COMPARISON: [facility], CT, CT PEL WO CON, 05/25/2023, 15:00. [facility], CT, CT HEAD/BRAIN WO CON, 05/25/2023, 14:38. [facility], CR, XR CHEST 1V, 05/25/2023, 14:31. [facility], CR, XR HIP W PEL IF DONE RT 2V, 05/25/2023, 14:31. FINDINGS: Image quality: Excellent. Bones: No fractures or dislocations. Visualized superior ribs are intact. Focal degenerative change is seen involving the C1-C2 interface anteriorly. There is mild to moderate disc space narrowing seen at C4-C5 and C5-C6, with at least moderate disc space narrowing at C6-C7, with associated endplate irregularity and sclerosis. Multiple levels of facet hypertrophy can be seen. Soft tissues: Prevertebral soft tissues are normal in thickness. No paravertebral hematomas. No apical pneumothoraces. IMPRESSION: No displaced fracture or traumatic subluxation. Degenerative changes are seen, which are worst at the C6-C7 level. Dictated by: Ke Stewart M.D. on 05/25/2023 at 14:07 ECG Data Interpretation: Sinus rhythm rate 84 DC interval 134 QRS [address] changes no T-wave inversions similar to previous EKGs in September of 2022 [facility] Narrative Medical decision making narrative: Patient 77-year-old female who has frequent falls fell today complaining of right pain no evidence of acute hip or pelvis fracture. She is actually moving it in bed. Imaging has been reviewed including head CT cervical spine chest x-ray and other extremity x-ray is without any acute abnormality please see results above Blood work has been reviewed no leukocytosis or anemia, chloride 109 BUN 23 creatinine 0.97, CPK 29, troponin negative, Patient falls regularly fell today no evidence of injury no significant lab abnormality. She ambulates with a walker. She is multiple sores all over it does seem like she picks at herself. Which she admits to. We talked about wearing mittens or socks to prevent that. No evidence of infection or cellulitis at this time. Will give her some mupirocin ointment to maybe help. At this time does not meet admission criteria. Discharge Plan Departure Patient Disposition: Home Clinical Impression: Fall, Wound of skin Instructions: How to Prevent Falls Activity Restrictions/Additional Instructions: *You have been diagnosed with fall, skin wound *What to do: At this time use your walker. No evidence of broken bones today. Use ointment on your may be where mittens or something to prevent herself from scratching *Continue to take medications as directed Mupirocin twice daily over affected area *Follow up with your primary care provider in 2-3 days or call [phone] *Return to ER if you should have increasing confusion, redness swelling or any new, worsening or concerning symptoms Prescriptions: New mupirocin 2 % ointment 1 applictn TOP BID Qty: 15 0RF No Action Venlafaxine Hydrochloride (#EFFEXOR) 75 mg PO DAILY Qty: 0 Rx Instructions: 37.5 mg at noon METRONIDAZOLE (#METROGEL) 0.75 dose TP BIDPRN Qty: 0 Fish Oil (#OMEGA 3) 1,000 mg PO BID Qty: 0 topiramate [Topamax] 25 MG capsule, sprinkle 200 mg PO DAILY Qty: 0 esomeprazole magnesium [Nexium] 40 MG capsule,delayed release(DR/EC) 40 mg PO BIDAC Qty: 180 3RF aspirin [Himanshu Low Dose Aspirin] 81 mg Tablet,Delayed Release (Dr/Ec) 81 mg PO DAILY trazodone 100 mg tablet 200 mg PO DAILY metoprolol tartrate 25 mg tablet 12.5 mg PO BID Referrals: Alonzo Suh DO [Primary Care Provider] - Stand Alone Forms: Patient Portal/API
[2023-05-25 15:38] LABS: Add Manual Diff / Slide Review NO; Basophils Absolute Auto 100 /uL (0-100); Basophils Percent Auto 0.7 % (0-2); Eosinophils Absolute Auto 100 /uL (0-450); Eosinophils Percent Auto 0.7 % (2-4); Hematocrit 43.5 % (36-46); Hemoglobin 14.4 g/dL (12.0-16.0); Lymphocytes Absolute Auto 1200 /uL (1100-4500); Mean Corpuscular HGB Conc 33.1 % (30-36); Mean Corpuscular Hemoglobin 31.3 PG (26-34); Mean Corpuscular Volume 94.7 fL (80-100); Monocytes Absolute Auto 700 /uL (0-900); Monocytes Percent Auto 7.9 % (3-14); Neutrophils Absolute Auto 7300 /uL (1500-7000); Neutrophils Percent Auto 77.7 % (50-75); Platelet Count 255 X10^3/uL (150-400); Red Blood Cell Count 4.59 X10^6/uL (4.0-5.2); Red Cell Distribution Width 14.5 % (11.6-14.8); White Blood Cell Count 9.4 X10^3/uL (4.5-11.0)
[2023-05-25 15:47] LABS: Prothrombin Time 10.9 SECONDS (9.4-12.5)
[2023-05-25 15:50] LABS: PTT Partial Thromboplastin Tim 27 SECONDS (25.1-36.5)
[2023-05-25 15:58] LABS: Alanine Aminotransferase 19 IU/L (<35); Albumin 3.9 g/dL (3.5-5.0); Albumin Globulin Ratio 1.3 (1.0-2.8); Alkaline Phosphatase 72 U/L (38-126); Aspartate Aminotransferase 21 IU/L (14-36); BUN Creatinine Ratio 23.7 (6-22); Bilirubin Total 0.5 mg/dL (0.2-1.3); Blood Urea Nitrogen 23 mg/dL (7-17); Calcium 10.1 mg/dL (8.4-10.2); Carbon Dioxide 25 mmol/L (22-32); Chloride 109 mmol/L (98-107); Creatine Kinase 25 U/L (30-135); Estimated Glomerular Filt Rate 59 mL/min (>60); Globulin 2.9 g/dL (1.7-4.1); Glucose 92 mg/dL (80-110); HEMOLYSIS 25 (0-50); Lipase 59 U/L (23-300); Potassium 4.4 mmol/L (3.4-5.1); Sodium 139 mmol/L (137-145); Total Protein 6.8 g/dL (6.3-8.2)
[2023-05-25 16:10] LABS: Troponin I < 0.012 ng/mL (0.01-0.034)
== END 2023-05-25 18:30 | disposition home or self-care (01) ==
PROVIDERS: Emergency Provider Emergency Medicine; PCP Family Medicine
DX: M25.551 Pain in right hip (principal); T14.8XXA Other injury of unspecified body region, initial encounter; R07.9 Chest pain, unspecified; W06.XXXA Fall from bed, initial encounter; Z79.82 Long term (current) use of aspirin
CPT/HCPCS: 36415; 70450; 71045; 72125; 72192; 73502; 73562; 73590; 80053; 82550; 83690; 83735; 84484; 85025; 85610; 85730; 93005; 99284

== ENCOUNTER 2024-12-16 23:26 | Emergency (ER) | payer MEDICARE, MEDICAID, SELFPAY ==
[2024-12-16 23:30] VITALS: PULSE 102; RESP 30; O2SAT 95
[2024-12-16 23:31] VITALS: PULSE 96; RESP 28; O2SAT 95
[2024-12-16 23:33] VITALS: BP 150/82; PULSE 109; RESP 30; O2SAT 95
[2024-12-16 23:34] VITALS: TEMP 36.9
[2024-12-17] VITALS (13 sets, daily range): BP systolic 107–152; BP diastolic 63–89; PULSE 82–123; RESP 15–37; TEMP 36.4; O2SAT 92–96
--- NOTE | 2024-12-17 00:14 | DI.RAD.S_ITS ---
PROCEDURE: XR CHEST 1V INDICATIONS: chest pain TECHNIQUE: One view of the chest was acquired. COMPARISON: [facility], CR, XR CHEST 1V, 05/25/2023, 14:31. [facility], CR, XR CHEST 1V, 10/16/2022, 14:02. FINDINGS: Surgical changes and devices: None. Lungs and pleura: Lungs are clear. No pleural effusions or pneumothorax. Mediastinum: Mediastinal contours appear normal. Heart size is normal. Bones and chest wall: No suspicious bony lesions. Overlying soft tissues appear unremarkable. IMPRESSION: No acute cardiopulmonary abnormality is seen. Dictated by: Shayne Gonzalez M.D. on 12/17/2024 at 0:24 Approved by: Shayne Gonzalez M.D. on 12/17/2024 at 0:24
--- NOTE | 2024-12-17 00:38 | EKG_ITS ---
[facility] [address] [place] [address] Test Date: 2024-12-17 Pat Name: Joselin Patrick Department: [facility] Room: Gender: Female [employer]: : 1945 Requested By: Order Number: [id number] Reading MD: Quang Hart Measurements Intervals Sharples Rate: 94 P: 62 AR: 130 QRS: -38 QRSD: 76 T: 50 QT: 366 QTc: 457 Interpretive Statements Sinus rhythm with frequent premature ventricular complexes and premature atrial complexes Left axis deviation Electronically Signed On 12-30-2024 8:12:42 PDT by Quang Hart
--- NOTE | 2024-12-17 00:58 | PC.NURSE ---
Pt refusing IV at this time stating difficult veins and multiple previous traumatic IV attempts. Pt agrees to have straight stick for lab draw.
[2024-12-17 01:30] LABS: Add Manual Diff / Slide Review NO; Hematocrit 42.4 % (36-46); Hemoglobin 14.4 g/dL (12.0-16.0); Lymphocytes Absolute Auto 2100 /uL (1100-4500); Mean Corpuscular HGB Conc 33.9 % (30-36); Mean Corpuscular Hemoglobin 32.5 PG (26-34); Mean Corpuscular Volume 95.8 fL (80-100); Platelet Count 236 X10^3/uL (150-400)
--- NOTE | 2024-12-17 01:36 | ED.GENADULT ---
HPI - General Adult General Chief complaint: Weakness Stated complaint: Bodyaches/weakness Time Seen by Provider: 12/16/24 23:40 Source: patient and EMS Mode of arrival: EMS History of Present Illness HPI narrative: 79-year-old female with history of atrial fibrillation paroxysmal intermittent, no chronic anticoagulation, takes metoprolol, complains of generalized weakness and skin itching and body aches. No recent cough, fevers, chills. No dysuria or frequency of urination. She has skin sores predominantly on her legs, itchy skin says that she picks at them often. Related Data Home Medications ?Medication ?Instructions ?Recorded ?Confirmed Fish Oil (#OMEGA 3) 1,000 mg PO BID ##0 01/15/11 12/12/19 METRONIDAZOLE (#METROGEL) 0.75 dose TP BIDPRN ##0 01/15/11 12/12/19 Venlafaxine Hydrochloride 75 mg PO DAILY ##0 01/15/11 (#EFFEXOR) topiramate 25 mg sprinkle capsule 200 mg PO DAILY ##0 01/15/11 12/12/19 (Topamax) aspirin 81 mg tablet,delayed 81 mg PO DAILY 12/12/19 12/12/19 release (Himanshu Low Dose Aspirin) metoprolol tartrate 25 mg tablet 12.5 mg PO BID 12/12/19 12/12/19 trazodone 100 mg tablet 200 mg PO DAILY 12/12/19 12/12/19 Previous Rx's ?Medication ?Instructions ?Recorded esomeprazole magnesium 40 mg 40 mg PO BIDAC ##180 01/28/11 capsule,delayed release (Nexium) mupirocin 2 % topical ointment 1 applictn topical BID #15 grams 05/25/23 Allergies Allergy/AdvReac Type Severity Reaction Status Date / Time lithium Allergy Unknown Swelling Verified 10/16/22 15:32 tetracycline Allergy Unknown Hives Verified 10/16/22 15:32 acetaminophen (From Fioricet) Allergy Seizure Verified 10/16/22 15:32 butalbital Allergy Verified 10/16/22 15:32 caffeine (From Fioricet) Allergy Seizure Verified 10/16/22 15:32 gabapentin Allergy Verified 10/16/22 15:32 Patient History Medical History Skin cancer Depression Anxiety Neuropathy Seizures Hepatitis A GERD (gastroesophageal reflux disease) Arthritis Atrial fibrillation Surgical History Hx of tonsillectomy History of pelvic surgery H/O hysterectomy for benign disease Social History household members: none Smoking Status: Never smoker alcohol intake: current Smoking Status: Never smoker tobacco type: cigarettes alcohol intake frequency: holidays/special occasions only Exam Narrative Exam Narrative: GENERAL: Well-developed patient, in mild distress. HEAD: Atraumatic. Normocephalic. EYES: Pupils equal round and reactive. Extraocular motions intact. No scleral icterus. No injection or drainage. ENT: Nose without bleeding, purulent drainage. Throat without erythema, tonsillar hypertrophy or exudate. Airway patent. NECK: Trachea midline. Non tender CARDIOVASCULAR: Regular rate and rhythm without murmurs, gallops, or rubs. RESPIRATORY: Clear to auscultation. Breath sounds equal bilaterally. No wheezes, rales, or rhonchi. GASTROINTESTINAL: Abdomen soft, non-tender, nondistended. EXTREMITIES: No edema or joint tenderness. BACK: Nontender without deformity or crepitance. No flank tenderness. NEURO: AOx3. Motor functions grossly nonfocal. SKIN: Scattered scabs small bilateral lower extremities consistent with picking, does not appear scabies like, no eczematous plaque. No significant cellulitis or erythema associated. Initial Vital Signs Initial Vital Signs: Vital Signs Pulse Rate 102 H 12/16/24 23:30 Respiratory Rate 30 H 12/16/24 23:30 Pulse Oximetry 95 12/16/24 23:30 Course Orders Ordered: Discontinued Medications Acetaminophen (Acetaminophen 325 Mg Tablet) 650 mg PO NOW ONE Stop: 12/17/24 03:27 Last Admin: 12/17/24 03:31 Dose: 650 mg Documented By: LISANDRO Metoprolol Succinate (Metoprolol Er 25 Mg Tablet) 12.5 mg PO NOW ONE Stop: 12/17/24 04:46 Last Admin: 12/17/24 06:26 Dose: 12.5 mg Documented By: LISANDRO Vital Signs Vital signs: Vital Signs - 8 hr 12/17/24 09:19 Temperature 97.5 F L Pulse Rate 82 Respiratory Rate 16 Blood Pressure 107/70 Pulse Oximetry 96 Oxygen Delivery Method Room Air Medical Decision Making Lab Data Lab results reviewed: Yes I reviewed the patient's lab results. Lab results narrative: White blood cell count 6900, hemoglobin 14.4, platelets adequate. Glucose 94. BUN creatinine normal renal function. Serum CO2 in electrolytes unremarkable. Liver functions and lipase normal. Troponin negative/unmeasurable. Procalcitonin not elevated. Lactate 0.9 not elevated. Urinalysis negative. COVID influenza RSV swab negative. 12/17/24 00:54 12/17/24 00:54 Labs: Lab Results 12/17/24 12/17/24 Range/Units 00:54 02:04 WBC 6.9 (4.5-11.0) X10^3/uL RBC 4.42 (4.0-5.2) X10^6/uL Hgb 14.4 (12.0-16.0) g/dL Hct 42.4 (36-46) % MCV 95.8 (80-100) fL MCH 32.5 (26-34) PG MCHC 33.9 (30-36) % RDW 13.9 (11.6-14.8) % Plt Count 236 (150-400) X10^3/uL Neut % (Auto) 54.2 (50-75) % Lymph % (Auto) 31.1 (25-40) % [place] % (Auto) 11.5 (3-14) % Eos % (Auto) 2.0 (2-4) % Baso % (Auto) 1.2 (0-2) % Neut # (Auto) 3700 (7740-1022) /uL Lymph # (Auto) 2100 (3900-6838) /uL [place] # (Auto) 800 (0-900) /uL Eos # (Auto) 100 (0-450) /uL Baso # (Auto) 100 (0-100) /uL Sodium 139 (137-145) mmol/L Potassium 3.8 (3.4-5.1) mmol/L Chloride 108 H (98-107) mmol/L Carbon Dioxide 25 (22-32) mmol/L BUN 17 (7-17) mg/dL Creatinine 1.00 (0.52-1.04) mg/dL Estimated GFR 57 L (>60) mL/min BUN/Creatinine Ratio 17.0 (6-22) Glucose 94 (70-99) mg/dL Lactate 0.9 (0.7-2.1) mmol/L Calcium 9.3 (8.4-10.2) mg/dL Total Bilirubin 0.5 (0.2-1.3) mg/dL AST 23 (14-36) IU/L ALT 16 (<35) IU/L Alkaline Phosphatase 81 (38-126) U/L Total Creatine Kinase 66 (30-135) U/L Troponin I < 0.012 (0.01-0.034) ng/mL Total Protein 6.5 (6.3-8.2) g/dL Albumin 3.9 (3.5-5.0) g/dL Globulin 2.6 (1.7-4.1) g/dL Albumin/Globulin Ratio 1.5 (1.0-2.8) Lipase 41 (23-300) U/L Procalcitonin 0.051 (<0.5) ng/mL Urine Color Yellow Urine Appearance Clear Urine pH 7.5 (4.5-8.0) Ur Specific [place] 1.010 (1.000-1.035) Urine Protein Negative (Negative) Urine Glucose (UA) Negative (Negative) g/dL Urine Ketones Negative (NEGATIVE) Urine Occult Blood Trace-intact (Negative) Urine Nitrate Negative (Negative) Urine Bilirubin Negative (NEGATIVE) Urine Urobilinogen 0.2 (0.2) E.U./dL Ur Leukocyte Esterase Negative (NEGATIVE) Urine RBC 0-1/hpf (0-5/HPF) Urine WBC None seen (0-5/HPF) Ur Squamous Epith Cells 1-5 /hpf (0-5/HPF) Urine Bacteria None seen (None) Ur Culture Indicated? Cult not indicated Vol Urine Centrifuged 10ml (spun) SARS-CoV-2 (PCR) Negative (Negative) Influenza A (RT-PCR) Flu a negative (NEGATIVE) Influenza B (RT-PCR) Flu b negative (NEGATIVE) RSV (PCR) Negative (Negative) Imaging Data Chest x-ray: Radiologist's Impression: [address] [address] XRay Report Signed Patient: Joselin Patrick MR#: [id number] : 1945 Acct:[id number] Age/Sex: 79 / F Date of Service: 12/17/24 Loc: ED Accession Number: [id number] Procedure: XR chest 1V Ordering Provider: Sky Olmedo MD PROCEDURE: XR CHEST 1V INDICATIONS: chest pain TECHNIQUE: One view of the chest was acquired. COMPARISON: [facility], CR, XR CHEST 1V, 05/25/2023, 14:31. [facility], CR, XR CHEST 1V, 10/16/2022, 14:02. FINDINGS: Surgical changes and devices: None. Lungs and pleura: Lungs are clear. No pleural effusions or pneumothorax. Mediastinum: Mediastinal contours appear normal. Heart size is normal. Bones and chest wall: No suspicious bony lesions. Overlying soft tissues appear unremarkable. IMPRESSION: No acute cardiopulmonary abnormality is seen. Dictated by: Shayne Gonzalez M.D. on 12/17/2024 at 0:24 Approved by: Shayne Gonzalez M.D. on 12/17/2024 at 0:24 ECG Data Attestation: I personally reviewed and interpreted this ECG as follows: Interpretation: 0038, normal sinus rhythm with rate of 94, no obvious ST segment elevation or depression changes. HI 130, QRS 76, QTC 457. MDM Narrative Medical decision making narrative: 79-year-old female with diffuse myalgias, no fever. No change in medications or new medications. Denies cough. Denies dysuria or urianry frequency. Has scabs bilateral lower extremities consistent with her picking at them, states she has dry skin, no obvious cellulitis at this time. Afebrile, sirs screen negative. Labs sent, pending. Chest x-ray no acute changes. See radiology report. EKG was sinus rhythm, no acute changes. Lab data: White blood cell count 6900, hemoglobin 14.4, platelets adequate. Glucose 94. BUN creatinine normal renal function. Serum CO2 in electrolytes unremarkable. Liver functions and lipase normal. Troponin negative/unmeasurable. Procalcitonin not elevated. Lactate 0.9 not elevated. Urinalysis negative. COVID influenza RSV swab negative. Oral aspirin given prior. Still feeling achy, will give oral Tylenol. No emergency condition identified. Unclear cause of her diffuse achiness. Follow up advised with the regular doctor on Thursday. Return back to her home facility for now, discharged home. Intermittent faster heart rate recorded, history of intermittent AFib, due for morning oral metoprolol dose, ordered. last HR 82 DC home as planned, further workup as an outpatient for now. Discharge Plan Departure Patient Disposition: Home Clinical Impression: Myalgia Activity Restrictions/Additional Instructions: Diffuse muscle aches of unclear cause. Chest x-ray EKGs serial labs urinalysis testing all unrevealing. COVID influenza RSV swab was also negative. Unclear cause of your symptoms. No new medications known. Aspirin given. Then subsequently Tylenol given. Take Tylenol as needed for discomfort. Recheck symptoms with your regular doctor on Thursday. Return to this/nearest emergency department for any change worsening symptoms or any concerns prior. Prescriptions: No Action Venlafaxine Hydrochloride (#EFFEXOR) 75 mg PO DAILY Qty: 0 Rx Instructions: 37.5 mg at noon METRONIDAZOLE (#METROGEL) 0.75 dose TP BIDPRN Qty: 0 Fish Oil (#OMEGA 3) 1,000 mg PO BID Qty: 0 topiramate [Topamax] 25 MG capsule, sprinkle 200 mg PO DAILY Qty: 0 esomeprazole magnesium [Nexium] 40 MG capsule,delayed release(DR/EC) 40 mg PO BIDAC Qty: 180 3RF aspirin [Himanshu Low Dose Aspirin] 81 mg Tablet,Delayed Release (Dr/Ec) 81 mg PO DAILY trazodone 100 mg tablet 200 mg PO DAILY metoprolol tartrate 25 mg tablet 12.5 mg PO BID mupirocin 2 % ointment 1 applictn TOP BID Qty: 15 0RF Referrals: Alonzo Suh DO [Primary Care Provider, Family Practice] Stand Alone Forms: Patient Portal/API
[2024-12-17 01:43] LABS: Alanine Aminotransferase 16 IU/L (<35); Albumin 3.9 g/dL (3.5-5.0); Albumin Globulin Ratio 1.5 (1.0-2.8); Alkaline Phosphatase 81 U/L (38-126); Blood Urea Nitrogen 17 mg/dL (7-17); Calcium 9.3 mg/dL (8.4-10.2); Carbon Dioxide 25 mmol/L (22-32); Chloride 108 mmol/L (98-107); Creatine Kinase 66 U/L (30-135); Estimated Glomerular Filt Rate 57 mL/min (>60); Globulin 2.6 g/dL (1.7-4.1); Glucose 94 mg/dL (70-99); HEMOLYSIS < 15 (0-50); Lipase 41 U/L (23-300); Potassium 3.8 mmol/L (3.4-5.1); Sodium 139 mmol/L (137-145); Total Protein 6.5 g/dL (6.3-8.2)
[2024-12-17 01:44] LABS: Lactate (Lactic Acid) 0.9 mmol/L (0.7-2.1)
[2024-12-17 01:55] LABS: Troponin I < 0.012 ng/mL (0.01-0.034)
[2024-12-17 01:57] LABS: Influenza A - CEPHEID Flu A NEGATIVE (NEGATIVE); Influenza B - CEPHEID Flu B NEGATIVE (NEGATIVE)
[2024-12-17 02:00] LABS: Procalcitonin 0.051 ng/mL (<0.5)
[2024-12-17 02:02] LABS: COVID-19 CEPHEID 4-PLEX PCR Negative (Negative)
[2024-12-17 02:40] LABS: Appearance Urine UA CLEAR; Bilirubin Urine UA NEGATIVE (NEGATIVE); Color Urine UA YELLOW; Glucose Urine UA NEGATIVE (Negative); Ketones Urine UA NEGATIVE (NEGATIVE); Leukocyte Esterase Urine UA NEGATIVE (NEGATIVE); Nitrite Urine UA NEGATIVE (Negative); Occult Blood Urine UA TRACE-INTACT (Negative); Protein Urine UA NEGATIVE (Negative); Specific Gravity Urine UA 1.010 (1.000-1.035); Urobilinogen Urine UA 0.2 E.U./dL (0.2); pH Urine UA 7.5 (4.5-8.0)
[2024-12-17 02:57] LABS: Culture Indicated Urine Cult Not Indicated
[2024-12-17] MEDS: ACETAMINOPHEN 325 MG TABLET 650 MG PO (03:31)
[2024-12-17] MEDS: METOPROLOL ER 25 MG TABLET 12.5 MG PO (06:26)
--- NOTE | 2024-12-17 09:24 | PC.NURSE ---
report given to [facility], report to [facility] in [place], no answer. patient dressing herself in pajammas, leaving on stretcher, taking 4 wheeled walker.
== END 2024-12-17 09:29 | disposition home or self-care (01) ==
PROVIDERS: Emergency Provider Emergency Medicine; PCP Family Medicine
DX: M79.10 Myalgia, unspecified site (principal); R53.1 Weakness; I48.0 Paroxysmal atrial fibrillation; L29.9 Pruritus, unspecified
CPT/HCPCS: 36415; 71045; 80053; 81001; 82550; 83605; 83690; 84145; 84484; 85025; 87637; 93005; 99284

== ENCOUNTER 2025-02-04 15:02 | Emergency (ER) | payer MEDICARE, MEDICAID, SELFPAY ==
[2025-02-04] VITALS (37 sets, daily range): BP systolic 115–169; BP diastolic 58–102; PULSE 84–159; RESP 16–52; TEMP 37; O2SAT 91–98; BMI 29.7
--- NOTE | 2025-02-04 15:42 | ED.CHESTPAIN ---
HPI - Chest Pain <Peter Pedroza, DO - Last Filed: 02/05/25 10:34> General Chief Complaint: Chest Pain Stated Complaint: Chest Pain Time Seen by Provider: 02/04/25 20:06 History of Present Illness HPI narrative: 79-year-old female brought in via EMS for chest and upper back pain refusing aspirin at this time. Patient pulled the fire alarm at the assisted living facility as she she felt she was being on heard and on cared for by staff there requesting she be transported to [place] for chest pain work up. Pt reports upper back pain and chest pain radiating to the right arm described as sharp intermittent pain comes and goes at this time. Other than what is stated 14 point review of system is negative. Related Data Home Medications ?Medication ?Instructions ?Recorded ?Confirmed Fish Oil (#OMEGA 3) 1,000 mg PO BID ##0 01/15/11 12/12/19 METRONIDAZOLE (#METROGEL) 0.75 dose TP BIDPRN ##0 01/15/11 12/12/19 Venlafaxine Hydrochloride 75 mg PO DAILY ##0 01/15/11 (#EFFEXOR) topiramate 25 mg sprinkle capsule 200 mg PO DAILY ##0 01/15/11 12/12/19 (Topamax) aspirin 81 mg tablet,delayed 81 mg PO DAILY 12/12/19 12/12/19 release (Himanshu Low Dose Aspirin) metoprolol tartrate 25 mg tablet 12.5 mg PO BID 12/12/19 12/12/19 trazodone 100 mg tablet 200 mg PO DAILY 12/12/19 12/12/19 Previous Rx's ?Medication ?Instructions ?Recorded esomeprazole magnesium 40 mg 40 mg PO BIDAC ##180 01/28/11 capsule,delayed release (Nexium) mupirocin 2 % topical ointment 1 applictn topical BID #15 grams 05/25/23 Allergies Allergy/AdvReac Type Severity Reaction Status Date / Time lithium Allergy Unknown Swelling Verified 02/04/25 16:16 tetracycline Allergy Unknown Hives Verified 02/04/25 16:16 butalbital Allergy Verified 02/04/25 16:16 caffeine (From Fioricet) Allergy Seizure Verified 02/04/25 16:16 gabapentin Allergy Verified 02/04/25 16:16 Review of Systems <Peter Pedroza DO - Last Filed: 02/05/25 10:34> Review of Systems Narrative: GENERAL: [79] year old patient appears stated age. Well-developed patient, in mild distress. HEAD: Atraumatic. Normocephalic. EYES: Pupils equal round and reactive. Extraocular motions intact. No scleral icterus. No injection or drainage. ENT: Nose without bleeding, purulent drainage. Throat without erythema, tonsillar hypertrophy or exudate. Airway patent. NECK: Trachea midline. Non tender CARDIOVASCULAR: Regular rate and rhythm without murmurs, gallops, or rubs. RESPIRATORY: Clear to auscultation. Breath sounds equal bilaterally. No wheezes, rales, or rhonchi. GASTROINTESTINAL: Abdomen soft, non-tender, nondistended. EXTREMITIES: No edema or joint tenderness. BACK: Nontender without deformity or crepitance. No flank tenderness. NEURO: AOx3. SKIN: No rash or erythema of visible areas Patient History <Peter Pedroza DO - Last Filed: 02/05/25 10:34> Medical History Skin cancer Depression Anxiety Neuropathy Seizures Hepatitis A GERD (gastroesophageal reflux disease) Arthritis Atrial fibrillation Surgical History Hx of tonsillectomy History of pelvic surgery H/O hysterectomy for benign disease Social History household members: none alcohol intake: current tobacco type: cigarettes alcohol intake frequency: holidays/special occasions only Exam <Peter Pedroza DO - Last Filed: 02/05/25 10:34> Initial Vital Signs Initial Vital Signs: Vital Signs Blood Pressure 129/70 02/04/25 15:35 <Sky Olmedo MD - Last Filed: 02/05/25 08:42> Narrative Exam Narrative: GENERAL: Well-developed patient, in mild distress. HEAD: Atraumatic. Normocephalic. EYES: Pupils equal round and reactive. Extraocular motions intact. No scleral icterus. No injection or drainage. ENT: Nose without bleeding, purulent drainage. Airway patent. NECK: Trachea midline. Moves neck without distress. CARDIOVASCULAR: Regular rate and rhythm without murmurs, gallops, or rubs. RESPIRATORY: Clear to auscultation. Breath sounds equal bilaterally. No wheezes, rales, or rhonchi. GASTROINTESTINAL: Abdomen soft, non-tender, nondistended. EXTREMITIES: No edema or joint tenderness. BACK: Nontender without deformity or crepitance. No flank tenderness. NEURO: Motor functions grossly nonfocal. SKIN: No rash or erythema of visible areas Initial Vital Signs Initial Vital Signs: Vital Signs Blood Pressure 129/70 02/04/25 15:35 Scores <Peter Pderoza DO - Last Filed: 02/05/25 10:34> HEART Score Heart Score history: Moderately Suspicious Heart Score EKG: Non-Specific repolarization disturbance Heart Score Age: > or = 65 years old Heart Score risk factors: 1-2 risk factors Heart Score troponin: < or = to normal limit Heart Score Total: 5 <Sky Olmedo MD - Last Filed: 02/05/25 08:42> HEART Score Heart Score Total: 5 Course <Peter Pedroza DO - Last Filed: 02/05/25 10:34> Orders Ordered: Discontinued Medications Aspirin (Aspirin 81 Mg Chew Tab) 324 mg PO NOW ONE Stop: 02/04/25 16:02 Last Admin: 02/04/25 16:05 Dose: 324 mg Documented By: [facility] Diltiazem HCl (Diltiazem 25 Mg/5 Ml Sdv) 10 mg IV NOW ONE Stop: 02/04/25 19:03 Last Admin: 02/04/25 19:37 Dose: Not Given Documented By: [facility] Diltiazem HCl (Diltiazem 25 Mg/5 Ml Sdv) 20 mg IV NOW ONE Stop: 02/04/25 19:07 Last Admin: 02/04/25 19:38 Dose: Not Given Documented By: [facility] Diltiazem HCl 125 mg/ Sodium (Chloride) 125 mls @ 5 mls/hr IV TITRATE FRANCIE; Protocol Lorazepam (Lorazepam 0.5 Mg Tablet) 1 mg PO NOW ONE Stop: 02/04/25 19:48 Last Admin: 02/04/25 19:51 Dose: 1 mg Documented By: [facility] Metoprolol Tartrate (Metoprolol Tartrate 5 Mg/5 Ml Inj) 5 mg IV Q5M FRANCIE Stop: 02/04/25 19:26 Last Admin: 02/04/25 22:56 Dose: Not Given Documented By: Admin: 02/04/25 21:21 Dose: 5 mg Documented By: Admin: 02/04/25 19:27 Dose: 5 mg Documented By: GINI Metoprolol Tartrate (Metoprolol Ir 25 Mg Tablet) 12.5 mg PO NOW ONE Stop: 02/04/25 22:20 Last Admin: 02/04/25 22:56 Dose: 12.5 mg Documented By: [facility] Vital Signs Vital signs: Vital Signs - 8 hr 02/05/25 03:00 02/05/25 03:30 02/05/25 03:50 Pulse Rate 99 H 84 Respiratory Rate 19 21 Blood Pressure 139/79 Pulse Oximetry 02/05/25 03:50 02/05/25 07:00 02/05/25 07:01 Pulse Rate 87 100 H 99 H Respiratory Rate 23 18 20 Blood Pressure Pulse Oximetry 94 94 93 02/05/25 07:01 02/05/25 07:31 02/05/25 07:31 Pulse Rate 96 H Respiratory Rate 22 Blood Pressure 129/85 127/77 Pulse Oximetry 94 02/05/25 08:00 02/05/25 08:03 02/05/25 08:30 Pulse Rate 109 H 105 H Respiratory Rate 23 31 H Blood Pressure 134/89 Pulse Oximetry 94 96 <Sky Olmedo MD - Last Filed: 02/05/25 08:42> Orders Ordered: Discontinued Medications Aspirin (Aspirin 81 Mg Chew Tab) 324 mg PO NOW ONE Stop: 02/04/25 16:02 Last Admin: 02/04/25 16:05 Dose: 324 mg Documented By: SHRUTI Diltiazem HCl (Diltiazem 25 Mg/5 Ml Sdv) 10 mg IV NOW ONE Stop: 02/04/25 19:03 Last Admin: 02/04/25 19:37 Dose: Not Given Documented By: Pat Diltiazem HCl (Diltiazem 25 Mg/5 Ml Sdv) 20 mg IV NOW ONE Stop: 02/04/25 19:07 Last Admin: 02/04/25 19:38 Dose: Not Given Documented By: Pat Diltiazem HCl 125 mg/ Sodium (Chloride) 125 mls @ 5 mls/hr IV TITRATE FRANCIE; Protocol Lorazepam (Lorazepam 0.5 Mg Tablet) 1 mg PO NOW ONE Stop: 02/04/25 19:48 Last Admin: 02/04/25 19:51 Dose: 1 mg Documented By: [facility] Metoprolol Tartrate (Metoprolol Tartrate 5 Mg/5 Ml Inj) 5 mg IV Q5M FRANCIE Stop: 02/04/25 19:26 Last Admin: 02/04/25 22:56 Dose: Not Given Documented By: Admin: 02/04/25 21:21 Dose: 5 mg Documented By: Admin: 02/04/25 19:27 Dose: 5 mg Documented By: [facility] Metoprolol Tartrate (Metoprolol Ir 25 Mg Tablet) 12.5 mg PO NOW ONE Stop: 02/04/25 22:20 Last Admin: 02/04/25 22:56 Dose: 12.5 mg Documented By: [facility] Vital Signs Vital signs: Vital Signs - 8 hr 02/05/25 03:00 02/05/25 03:30 02/05/25 03:50 Pulse Rate 99 H 84 Respiratory Rate 19 21 Blood Pressure 139/79 Pulse Oximetry 02/05/25 03:50 02/05/25 07:00 02/05/25 07:01 Pulse Rate 87 100 H 99 H Respiratory Rate 23 18 20 Blood Pressure Pulse Oximetry 94 94 93 02/05/25 07:01 02/05/25 07:31 02/05/25 07:31 Pulse Rate 96 H Respiratory Rate 22 Blood Pressure 129/85 127/77 Pulse Oximetry 94 02/05/25 08:00 02/05/25 08:03 02/05/25 08:30 Pulse Rate 109 H 105 H Respiratory Rate 23 31 H Blood Pressure 134/89 Pulse Oximetry 94 96 MDM - Chest Pain <Peter Pedroza, DO - Last Filed: 02/05/25 10:34> Lab Data 02/04/25 16:00 02/04/25 16:00 Labs: Lab Results 02/04/25 02/04/25 02/04/25 Range/Units 16:00 18:10 18:28 WBC 5.8 (4.5-11.0) X10^3/uL RBC 4.35 (4.0-5.2) X10^6/uL Hgb 14.0 (12.0-16.0) g/dL Hct 41.6 (36-46) % MCV 95.5 (80-100) fL MCH 32.1 (26-34) PG MCHC 33.6 (30-36) % RDW 13.3 (11.6-14.8) % Plt Count 243 (150-400) X10^3/uL Neut % (Auto) 64.4 (50-75) % Lymph % (Auto) 23.3 L (25-40) % Stone % (Auto) 9.9 (3-14) % Eos % (Auto) 1.5 L (2-4) % Baso % (Auto) 0.9 (0-2) % Neut # (Auto) 3700 (2979-4186) /uL Lymph # (Auto) 1400 (5671-9357) /uL Stone # (Auto) 600 (0-900) /uL Eos # (Auto) 100 (0-450) /uL Baso # (Auto) 100 (0-100) /uL PT 10.4 (9.4-12.5) SECONDS INR 0.9 (0.9-1.3) APTT 27 (25.1-36.5) SECONDS D-Dimer 627 H (<500) ng/ml Sodium 138 (137-145) mmol/L Potassium 4.2 (3.4-5.1) mmol/L Chloride 106 (98-107) mmol/L Carbon Dioxide 26 (22-32) mmol/L BUN 15 (7-17) mg/dL Creatinine 0.97 (0.52-1.04) mg/dL Estimated GFR 59 L (>60) mL/min BUN/Creatinine Ratio 15.5 (6-22) Glucose 82 (70-99) mg/dL Calcium 9.2 (8.4-10.2) mg/dL Magnesium 2.0 (1.6-2.3) mg/dL Total Bilirubin 0.5 (0.2-1.3) mg/dL AST 24 (14-36) IU/L ALT 14 (<35) IU/L Alkaline Phosphatase 117 (38-126) U/L Total Creatine Kinase 49 (30-135) U/L Troponin I < 0.012 < 0.012 (0.01-0.034) ng/mL NT-Pro-B Natriuret Pep 473 H (<450) pg/mL Total Protein 6.6 (6.3-8.2) g/dL Albumin 3.9 (3.5-5.0) g/dL Globulin 2.7 (1.7-4.1) g/dL Albumin/Globulin Ratio 1.4 (1.0-2.8) Lipase 47 (23-300) U/L Urine Color Yellow Urine Appearance Clear Urine pH 6.0 (4.5-8.0) Ur Specific [place] <=1.005 (1.000-1.035) Urine Protein Negative (Negative) Urine Glucose (UA) Negative (Negative) g/dL Urine Ketones Negative (NEGATIVE) Urine Occult Blood Negative (Negative) Urine Nitrate Negative (Negative) Urine Bilirubin Negative (NEGATIVE) Urine Urobilinogen 0.2 (0.2) E.U./dL Ur Leukocyte Esterase Negative (NEGATIVE) Urine RBC 0-1/hpf (0-5/HPF) Urine WBC 0-1/hpf (0-5/HPF) Ur Squamous Epith Cells 0-1 /hpf (0-5/HPF) Urine Bacteria Occasional (0-1) (None) Ur Culture Indicated? Cult not indicated Vol Urine Centrifuged 10ml (spun) Imaging Data Chest x-ray: Radiologist's Impression: [address] [address] XRay Report Signed Patient: Joselin Patrick MR#: [id number] : 1945 Acct:[id number] Age/Sex: 79 / F Date of Service: 02/04/25 Loc: ED Accession Number: [id number] Procedure: XR chest 1V Ordering Provider: Peter Pedroza D.O. PROCEDURE: XR CHEST 1V INDICATIONS: Chest Pain TECHNIQUE: One view of the chest was acquired. COMPARISON: [facility], CR, XR CHEST 1V, 12/17/2024, 0:08. [facility], CR, XR CHEST 1V, 05/25/2023, 14:31. FINDINGS: Surgical changes and devices: None. Lungs and pleura: Lungs are clear. No pleural effusions or pneumothorax. Mediastinum: Mediastinal contours appear normal. Heart size is normal. Bones and chest wall: No suspicious bony lesions. Overlying soft tissues appear unremarkable. IMPRESSION: No acute cardiopulmonary abnormality is seen. ECG Data Interpretation: NSR LAD HR 89 AR 126 QRS [address]-t wave change Unchanged from 12/17/24 MDM Narrative Medical decision making narrative: All lab work, vital signs, nurse triage note, medication list, previous ER visits, and all imaging studies reviewed. Chest x-ray showed no acute cardiopulmonary abnormality. WBC 5.8 hemoglobin 4.2 platelet 243 INR 0.9 sodium 138 potassium 4.2 BUN 15 creatinine 0.97 troponin normal BNP 473. Patient given aspirin here. Heart score 5. <Sky Olmedo MD - Last Filed: 02/05/25 08:42> Lab Data Attestation: I reviewed the patient's lab results. Lab results narrative: White blood cell count 5800, hemoglobin 14, platelets adequate. Glucose 82. Normal renal function, serum CO2 electrolytes. Liver functions and lipase normal. Troponin negative/unmeasurable x2 interval sets. BNP 473. Urinalysis negative. Labs: Lab Results 02/04/25 02/04/25 02/04/25 Range/Units 16:00 18:10 18:28 WBC 5.8 (4.5-11.0) X10^3/uL RBC 4.35 (4.0-5.2) X10^6/uL Hgb 14.0 (12.0-16.0) g/dL Hct 41.6 (36-46) % MCV 95.5 (80-100) fL MCH 32.1 (26-34) PG MCHC 33.6 (30-36) % RDW 13.3 (11.6-14.8) % Plt Count 243 (150-400) X10^3/uL Neut % (Auto) 64.4 (50-75) % Lymph % (Auto) 23.3 L (25-40) % Stone % (Auto) 9.9 (3-14) % Eos % (Auto) 1.5 L (2-4) % Baso % (Auto) 0.9 (0-2) % Neut # (Auto) 3700 (2557-0723) /uL Lymph # (Auto) 1400 (0795-6185) /uL Stone # (Auto) 600 (0-900) /uL Eos # (Auto) 100 (0-450) /uL Baso # (Auto) 100 (0-100) /uL PT 10.4 (9.4-12.5) SECONDS INR 0.9 (0.9-1.3) APTT 27 (25.1-36.5) SECONDS D-Dimer 627 H (<500) ng/ml Sodium 138 (137-145) mmol/L Potassium 4.2 (3.4-5.1) mmol/L Chloride 106 (98-107) mmol/L Carbon Dioxide 26 (22-32) mmol/L BUN 15 (7-17) mg/dL Creatinine 0.97 (0.52-1.04) mg/dL Estimated GFR 59 L (>60) mL/min BUN/Creatinine Ratio 15.5 (6-22) Glucose 82 (70-99) mg/dL Calcium 9.2 (8.4-10.2) mg/dL Magnesium 2.0 (1.6-2.3) mg/dL Total Bilirubin 0.5 (0.2-1.3) mg/dL AST 24 (14-36) IU/L ALT 14 (<35) IU/L Alkaline Phosphatase 117 (38-126) U/L Total Creatine Kinase 49 (30-135) U/L Troponin I < 0.012 < 0.012 (0.01-0.034) ng/mL NT-Pro-B Natriuret Pep 473 H (<450) pg/mL Total Protein 6.6 (6.3-8.2) g/dL Albumin 3.9 (3.5-5.0) g/dL Globulin 2.7 (1.7-4.1) g/dL Albumin/Globulin Ratio 1.4 (1.0-2.8) Lipase 47 (23-300) U/L Urine Color Yellow Urine Appearance Clear Urine pH 6.0 (4.5-8.0) Ur Specific [place] <=1.005 (1.000-1.035) Urine Protein Negative (Negative) Urine Glucose (UA) Negative (Negative) g/dL Urine Ketones Negative (NEGATIVE) Urine Occult Blood Negative (Negative) Urine Nitrate Negative (Negative) Urine Bilirubin Negative (NEGATIVE) Urine Urobilinogen 0.2 (0.2) E.U./dL Ur Leukocyte Esterase Negative (NEGATIVE) Urine RBC 0-1/hpf (0-5/HPF) Urine WBC 0-1/hpf (0-5/HPF) Ur Squamous Epith Cells 0-1 /hpf (0-5/HPF) Urine Bacteria Occasional (0-1) (None) Ur Culture Indicated? Cult not indicated Vol Urine Centrifuged 10ml (spun) Imaging Data CTA chest PE protocol: Radiologist's Impression: [address] [address] [address] Scan Report Signed Patient: Joselin Patrick MR#: [id number] : 1945 Acct:[id number] Age/Sex: 79 / F Date of Service: 02/04/25 Loc: ED Accession Number: [id number] Procedure: CT angio chest PE protocol Ordering Provider: Sky Olmedo MD PROCEDURE: CT ANGIO CHEST PE PROTOCOL INDICATIONS: chest pain, new Afib RVR, Ddimer positive TECHNIQUE: After the administration of intravenous contrast, 2 mm thick sections acquired from the pulmonary apices to the posterior costophrenic angles. 3-dimensional maximum intensity projection (MIP) coronal and sagittal reformats were then acquired through the thorax. For radiation dose reduction, the following was used: automated exposure control, adjustment of mA and/or kV according to patient size. COMPARISON: [facility], CT, CT CERVICAL SPINE WO CON, 05/25/2023, 14:38. FINDINGS: Image quality: Diagnostic. Pulmonary arteries: Pulmonary arteries are normal in size, and demonstrate no intraluminal filling defects to suggest central pulmonary embolism. Lower Neck: No enlarged lymph nodes. Thyroid: Left thyroid nodule measuring 2.2 cm, (4/9). Axillae: No enlarged lymph nodes. Chest Wall: Unremarkable. Bones: L1 compression fracture. No suspicious osseous lesion Lungs and Pleura: No pneumothorax or pleural effusions. No significant acute airspace opacity. Scattered micro nodules. Heart: Heart size is normal. No pericardial effusion. Thoracic Vessels: No aortic aneurysm. Mediastinum and [place]: No enlarged lymph nodes. Esophagus: No wall thickening. No hiatal hernia. Upper Abdomen: Post cholecystectomy. IMPRESSION: 1. No pulmonary embolism. 2. No acute airspace opacity. 3. L1 compression fracture. Appears chronic. 4. Left thyroid nodule measuring approximately 2.2 cm. -Consider thyroid ultrasound in this older patient. Dictated by: Arturo Benitez M.D. on 02/04/2025 at 21:45 Approved by: Arturo Benitez M.D. on 02/04/2025 at 21:51 ECG Data Interpretation: 1619, NSR LAD HR 89 AR 126 QRS [address]-t wave change Unchanged from 12/17/241851, atrial fibrillation with rapid ventricular response rate 150, no obvious ST segment elevation or depression changes. Change from prior EKG that showed normal sinus rhythm earlier this visit. 1958, sinus rhythm with frequent PVCs, ventricular rate 108, left anterior fascicular block. AR 138, QRS 86, QTC 482. D-dimer elevated, CTA chest ordered. MDM Narrative Medical decision making narrative: All lab work, vital signs, nurse triage note, medication list, previous ER visits, and all imaging studies reviewed. Chest x-ray showed no acute cardiopulmonary abnormality. WBC 5.8 hemoglobin 4.2 platelet 243 INR 0.9 sodium 138 potassium 4.2 BUN 15 creatinine 0.97 troponin normal BNP 473. Patient given aspirin here. Heart score 5. 9, 5, Olmedo. Sign-out from Dr. Pedroza. 79-year-old female had right-sided chest pain radiating to the right arm, apparently at her care facility pulled the alarm to get attention of staff regarding her chest discomfort, initial EKGs showed normal sinus rhythm without obvious ischemic changes, was given oral aspirin, she refused IV placement, no nitroglycerin therefore given. Chest x-ray unremarkable. Initial troponin negative. Repeat interval troponin pending. Assumed care. Lab data: White blood cell count 5800, hemoglobin 14, platelets adequate. Glucose 82. Normal renal function, serum CO2 electrolytes. Liver functions and lipase normal. Troponin negative/unmeasurable x2 interval sets. BNP 473. Urinalysis negative. Chest x-ray, no acute changes. See radiology report. Repeat EKG done at 1851 shows rhythm/rate change, now with atrial fibrillation with rapid ventricular response rate 152. AFib RVR on monitor, 150 heart rate also noted. IV diltiazem bolus and infusion ordered. Patient aware, not currently having chest pain, seems to recognize diagnosis of atrial fibrillation, has had Afib in the past, unclear time of onset, not on blood thinner medications, prescribed low-dose metoprolol. We will cancel diltiazem order, not yet initiated. We will give IV metoprolol boluses to attempt rate control. Patient received IV metoprolol 5 mg x1 only. Reduction in heart rate, then apparent conversion on monitor, to sinus rhythm with frequent PVCs. Repeat EKG shows sinus rhythm with PVCs, rate 108. CTA chest shows no PE, no infiltrates. Incidental thyroid nodule. Old appearing L1 vertebral body fracture. See radiology report. 2214, Patient does not want to go back to [facility], wants alternate placement. Consult high school social science teacher when available tomorrow morning. History of AFib, takes metoprolol, has had RVR in the past, no chronic blood thinner medications accept for baby aspirin, now back in sinus rhythm with PVCs. We will give additional oral metoprolol 12.5 mg dose. Consider discharge on 25 mg daily dose instead of 12.5 mg daily. Patient does not want to go back to [facility]. Does not seem to have any admission criteria at this time. Consult social media marketer in the morning for alternate disposition plan. Oral metoprolol 12.5 additional oral dose. Advised in increased dose metoprolol to 25 mg daily for discharge, patient has supply. 0500, nursing was able to contact daughter who is medical power of environmental attorney, who would like patient to be returned back to [facility], despite patient desire to not be returned there. BLS transport back to [facility] per medical power of environmental attorney direction. Discharge Plan Departure Patient Disposition: Home Clinical Impression: Atrial fibrillation with rapid ventricular response Chest pain Qualifiers: Chest pain type: chest pain on breathing Qualified Code(s): R07.1 - Chest pain on breathing Activity Restrictions/Additional Instructions: Chest pain of unclear cause. EKG and blood tests not suggestive of heart attack at this time. You had sinus rhythm of your heart, then went into atrial fibrillation for a little while that was responsive with the fast heart rate, IV metoprolol medication was given, your heart rate slowed and then you converted to sinus rhythm again. We advised use of increased metoprolol dose by mouth that you should take instead of 12.5 mg take a full [address] angiogram of the chest showed no acute process. Further workup as an outpatient for now. Case communicated with your daughter who stated that she was medical power of environmental attorney, and requested that he be transferred back to [facility]. Prescriptions: No Action Venlafaxine Hydrochloride (#EFFEXOR) 75 mg PO DAILY Qty: 0 Rx Instructions: 37.5 mg at noon METRONIDAZOLE (#METROGEL) 0.75 dose TP BIDPRN Qty: 0 Fish Oil (#OMEGA 3) 1,000 mg PO BID Qty: 0 topiramate [Topamax] 25 MG capsule, sprinkle 200 mg PO DAILY Qty: 0 esomeprazole magnesium [Nexium] 40 MG capsule,delayed release(DR/EC) 40 mg PO BIDAC Qty: 180 3RF aspirin [Himanshu Low Dose Aspirin] 81 mg Tablet,Delayed Release (Dr/Ec) 81 mg PO DAILY trazodone 100 mg tablet 200 mg PO DAILY metoprolol tartrate 25 mg tablet 12.5 mg PO BID mupirocin 2 % ointment 1 applictn TOP BID Qty: 15 0RF Referrals: Alonzo Suh DO [Primary Care Provider, Family Practice] Stand Alone Forms: Patient Portal/API
--- NOTE | 2025-02-04 16:01 | EKG_ITS ---
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
--- NOTE | 2025-02-04 16:01 | DI.RAD.S_ITS ---
PROCEDURE: XR CHEST 1V INDICATIONS: Chest Pain TECHNIQUE: One view of the chest was acquired. COMPARISON: [facility], CR, XR CHEST 1V, 12/17/2024, 0:08. [facility], CR, XR CHEST 1V, 05/25/2023, 14:31. FINDINGS: Surgical changes and devices: None. Lungs and pleura: Lungs are clear. No pleural effusions or pneumothorax. Mediastinum: Mediastinal contours appear normal. Heart size is normal. Bones and chest wall: No suspicious bony lesions. Overlying soft tissues appear unremarkable. IMPRESSION: No acute cardiopulmonary abnormality is seen. Dictated by: Michelle Godfrey M.D. on 02/04/2025 at 15:29 Approved by: Michelle Godfrey M.D. on 02/04/2025 at 15:30
[2025-02-04] MEDS: ASPIRIN 81 MG CHEW TAB 324 MG PO (16:05)
--- NOTE | 2025-02-04 16:12 | PC.NURSE ---
Pt was refusing care on arrival, pt is allowing for a blood draw by lab, no IV, Pt is allowing EKG at this time.
[2025-02-04 16:15] LABS: Add Manual Diff / Slide Review NO; Hematocrit 41.6 % (36-46); Hemoglobin 14.0 g/dL (12.0-16.0); Lymphocytes Absolute Auto 1400 /uL (1100-4500); Mean Corpuscular HGB Conc 33.6 % (30-36); Mean Corpuscular Hemoglobin 32.1 PG (26-34); Mean Corpuscular Volume 95.5 fL (80-100); Platelet Count 243 X10^3/uL (150-400)
[2025-02-04 16:20] LABS: INR 0.9 (0.9-1.3); Prothrombin Time 10.4 SECONDS (9.4-12.5)
[2025-02-04 16:22] LABS: PTT Partial Thromboplastin Tim 27 SECONDS (25.1-36.5)
[2025-02-04 16:26] LABS: Alanine Aminotransferase 14 IU/L (<35); Albumin 3.9 g/dL (3.5-5.0); Albumin Globulin Ratio 1.4 (1.0-2.8); Alkaline Phosphatase 117 U/L (38-126); Blood Urea Nitrogen 15 mg/dL (7-17); Calcium 9.2 mg/dL (8.4-10.2); Carbon Dioxide 26 mmol/L (22-32); Chloride 106 mmol/L (98-107); Creatine Kinase 49 U/L (30-135); Estimated Glomerular Filt Rate 59 mL/min (>60); Globulin 2.7 g/dL (1.7-4.1); Glucose 82 mg/dL (70-99); HEMOLYSIS 23 (0-50); Lipase 47 U/L (23-300); Magnesium 2.0 mg/dL (1.6-2.3); Potassium 4.2 mmol/L (3.4-5.1); Sodium 138 mmol/L (137-145); Total Protein 6.6 g/dL (6.3-8.2)
[2025-02-04 16:37] LABS: NT-proBNP (BNP-Adult 18+) 473 pg/mL (<450); Troponin I < 0.012 ng/mL (0.01-0.034)
--- NOTE | 2025-02-04 17:18 | PC.NURSE ---
Pt stated to this RN, I knew that if I just told them I had chest pain that they would bring me to this hospital, now, please don't send me back, I don't want to go back to [facility] [place].
[2025-02-04 18:32] LABS: Appearance Urine UA CLEAR; Bilirubin Urine UA NEGATIVE (NEGATIVE); Color Urine UA YELLOW; Glucose Urine UA NEGATIVE (Negative); Ketones Urine UA NEGATIVE (NEGATIVE); Leukocyte Esterase Urine UA NEGATIVE (NEGATIVE); Nitrite Urine UA NEGATIVE (Negative); Occult Blood Urine UA NEGATIVE (Negative); Protein Urine UA NEGATIVE (Negative); Specific Gravity Urine UA <=1.005 (1.000-1.035); Urobilinogen Urine UA 0.2 E.U./dL (0.2)
[2025-02-04 18:35] LABS: pH Urine UA 6.0 (4.5-8.0)
[2025-02-04 18:38] LABS: Culture Indicated Urine Cult Not Indicated
--- NOTE | 2025-02-04 18:52 | EKG_ITS ---
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
[2025-02-04 18:59] LABS: Troponin I < 0.012 ng/mL (0.01-0.034)
[2025-02-04] MEDS: METOPROLOL TARTRATE 5 MG/5 ML INJ IV ×2 (19:27→21:21)
--- NOTE | 2025-02-04 19:32 | W.PC.EDHO ---
report given to naveed.
--- NOTE | 2025-02-04 19:50 | DI.CT.S_ITS ---
PROCEDURE: CT ANGIO CHEST PE PROTOCOL INDICATIONS: chest pain, new Afib RVR, Ddimer positive TECHNIQUE: After the administration of intravenous contrast, 2 mm thick sections acquired from the pulmonary apices to the posterior costophrenic angles. 3-dimensional maximum intensity projection (MIP) coronal and sagittal reformats were then acquired through the thorax. For radiation dose reduction, the following was used: automated exposure control, adjustment of mA and/or kV according to patient size. COMPARISON: [facility], CT, CT CERVICAL SPINE WO CON, 05/25/2023, 14:38. FINDINGS: Image quality: Diagnostic. Pulmonary arteries: Pulmonary arteries are normal in size, and demonstrate no intraluminal filling defects to suggest central pulmonary embolism. Lower Neck: No enlarged lymph nodes. Thyroid: Left thyroid nodule measuring 2.2 cm, (4/). Axillae: No enlarged lymph nodes. Chest Wall: Unremarkable. Bones: L1 compression fracture. No suspicious osseous lesion Lungs and Pleura: No pneumothorax or pleural effusions. No significant acute airspace opacity. Scattered micro nodules. Heart: Heart size is normal. No pericardial effusion. Thoracic Vessels: No aortic aneurysm. Mediastinum and Lynne: No enlarged lymph nodes. Esophagus: No wall thickening. No hiatal hernia. Upper Abdomen: Post cholecystectomy. IMPRESSION: 1. No pulmonary embolism. 2. No acute airspace opacity. 3. L1 compression fracture. Appears chronic. 4. Left thyroid nodule measuring approximately 2.2 cm. -Consider thyroid ultrasound in this older patient. Dictated by: Arturo Benitez M.D. on 02/04/2025 at 21:45 Approved by: Arturo Benitez M.D. on 02/04/2025 at 21:51
--- NOTE | 2025-02-04 19:59 | EKG_ITS ---
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
[2025-02-04] MEDS: METOPROLOL IR 25 MG TABLET 12.5 MG PO (22:56)
--- NOTE | 2025-02-04 23:43 | PC.NURSE ---
Multiple attempts made by this RN to contact pt's social media intern Christie Pichardo ([phone]), Jaxson Medley ([phone]) next of kin and Kristan Skaggs ([phone]) daughter to discuss pt's discharge back to [facility]. Voice mail was left to please contact facility. Will make another attempt to contact pt's emergency contacts.
[2025-02-05] VITALS (17 sets, daily range): BP systolic 121–147; BP diastolic 58–89; PULSE 79–109; RESP 14–31; O2SAT 91–96
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
--- NOTE | 2025-02-05 10:02 | PC.NURSE ---
Patient very disrespectful to ED techs and RNs, numerous times. Patient combative towards staff, patient difficult to manage her emotions and feelings. Patient has verbal outbursts numerous times, very upset about insurance, upset about healthcare in general, upset about her daughter and upset that her facility does not have licensed nurses and states they have bad food and don't care about her food preferences
== END 2025-02-05 09:45 | disposition home or self-care (01) ==
PROVIDERS: Family Medicine; Emergency Provider Emergency Medicine; PCP Family Medicine
DX: I48.20 Chronic atrial fibrillation, unspecified (principal); R07.1 Chest pain on breathing
CPT/HCPCS: 36415; 51701; 71045; 71275; 80053; 81001; 82550; 83690; 83735; 83880; 84484; 85025; 85379; 85610; 85730; 93005; 93010; 99284; Q9967

== ENCOUNTER 2025-03-26 23:17 | Emergency (ER) | payer MEDICARE, SELFPAY ==
[2025-03-26 23:22] VITALS: PULSE 98; O2SAT 98
[2025-03-26 23:27] VITALS: BP 151/87; PULSE 95; RESP 20; O2SAT 97; BMI 30.4
--- NOTE | 2025-03-26 23:27 | DI.RAD.S_ITS ---
PROCEDURE: XR CHEST 1V
--- NOTE | 2025-03-26 23:27 | EKG_ITS ---
[facility]
[2025-03-26 23:30] VITALS: PULSE 98; RESP 24; O2SAT 95
[2025-03-26 23:31] VITALS: BP 136/71; PULSE 99; RESP 24; O2SAT 94
--- NOTE | 2025-03-26 23:43 | PC.NURSE ---
RUBBER INSULATOR note: Walked in and introduced myself hey my name is Dariana. I'm gonna come in and do an EKG. Do you know what an EKG is? Patient raised her voice and asked Do you think I'm stupid because I'm old? I looked at her confused. I never said anything to make you think I thought you were stupid. Patient replied with you asked if I know what an EKG is. Do you think I'm stupid? I explained no I don't think that, and I don't like that implication that you said I did think that. I ask because a lot of other people do not know what that is and I need to explain that to people. Patient then frowned. 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 I know what an EKG is. I nodded and proceeded to do the EKG. Told TENA Danielson about it.
[2025-03-26] MEDS: ASPIRIN 81 MG CHEW TAB 324 MG PO (23:44)
[2025-03-27] VITALS (9 sets, daily range): BP systolic 145–177; BP diastolic 67–73; PULSE 88–116; RESP 23–55; O2SAT 94–96
--- NOTE | 2025-03-27 00:10 | ED_ITS ---
HPI - Chest Pain
--- NOTE | 2025-03-27 00:10 | ED.CHESTPAIN ---
HPI - Chest Pain General Chief Complaint: Chest Pain Stated Complaint: Chest Tightness Time Seen by Provider: 03/27/25 00:09 Source: patient and EMS Mode of arrival: EMS History of Present Illness HPI narrative: 79-year-old female with history of anxiety, history of reflux on Nexium antacid regimen. Complained of chest pain radiating to the back earlier this evening, resolved prior to arrival. History of atrial fibrillation, takes metoprolol, takes aspirin, no other blood thinner medications. No injury or trauma new activities. No cough or shortness of breath. No fevers or chills. Related Data Home Medications ?Medication ?Instructions ?Recorded ?Confirmed Fish Oil (#OMEGA 3) 1,000 mg PO BID ##0 01/15/11 12/12/19 METRONIDAZOLE (#METROGEL) 0.75 dose TP BIDPRN ##0 01/15/11 12/12/19 Venlafaxine Hydrochloride 75 mg PO DAILY ##0 01/15/11 (#EFFEXOR) topiramate 25 mg sprinkle capsule 200 mg PO DAILY ##0 01/15/11 12/12/19 (Topamax) aspirin 81 mg tablet,delayed 81 mg PO DAILY 12/12/19 12/12/19 release (Himanshu Low Dose Aspirin) metoprolol tartrate 25 mg tablet 12.5 mg PO BID 12/12/19 12/12/19 trazodone 100 mg tablet 200 mg PO DAILY 12/12/19 12/12/19 Previous Rx's ?Medication ?Instructions ?Recorded esomeprazole magnesium 40 mg 40 mg PO BIDAC ##180 01/28/11 capsule,delayed release (Nexium) mupirocin 2 % topical ointment 1 applictn topical BID #15 grams 05/25/23 hydroxyzine HCl 50 mg tablet 50 mg PO BID PRN anxiety #30 tabs 03/27/25 metoprolol tartrate 25 mg tablet 12.5 mg (1/2 x 25 mg) PO BID #30 03/27/25 tabs sucralfate 1 gram tablet (Carafate) 1 g PO BID #30 tabs 03/27/25 Allergies Allergy/AdvReac Type Severity Reaction Status Date / Time lithium Allergy Unknown Swelling Verified 02/04/25 16:16 tetracycline Allergy Unknown Hives Verified 02/04/25 16:16 butalbital Allergy Verified 02/04/25 16:16 caffeine (From Fioricet) Allergy Seizure Verified 02/04/25 16:16 gabapentin Allergy Verified 02/04/25 16:16 Patient History Medical History Skin cancer Depression Anxiety Neuropathy Seizures Hepatitis A GERD (gastroesophageal reflux disease) Arthritis Atrial fibrillation Surgical History Hx of tonsillectomy History of pelvic surgery H/O hysterectomy for benign disease Social History household members: none alcohol intake: current tobacco type: cigarettes alcohol intake frequency: holidays/special occasions only Exam Narrative Exam Narrative: GENERAL: Well-developed patient, in mild distress. HEAD: Atraumatic. Normocephalic. EYES: Pupils equal round and reactive. Extraocular motions intact. No scleral icterus. No injection or drainage. ENT: Nose without bleeding, purulent drainage. Throat without erythema, tonsillar hypertrophy or exudate. Airway patent. NECK: Trachea midline. Non tender CARDIOVASCULAR: Regular rate and rhythm without murmurs, gallops, or rubs. RESPIRATORY: Clear to auscultation. Breath sounds equal bilaterally. No wheezes, rales, or rhonchi. GASTROINTESTINAL: Abdomen soft, non-tender, nondistended. EXTREMITIES: No edema or joint tenderness. BACK: Nontender without deformity or crepitance. No flank tenderness. NEURO: AOx3. Motor functions grossly nonfocal. SKIN: No rash or erythema of visible areas Initial Vital Signs Initial Vital Signs: Vital Signs Pulse Rate 98 H 03/26/25 23:22 Pulse Oximetry 98 03/26/25 23:22 Scores HEART Score Heart Score history: Slightly Suspicious Heart Score EKG: Normal Heart Score Age: > or = 65 years old Heart Score risk factors: 1-2 risk factors Heart Score troponin: < or = to normal limit Heart Score Total: 3 Course Orders Ordered: ED Orders 03/26/25 23:27 XR chest 1V Stat Complete Blood Count AUTO DIFF Stat Comprehensive Metabolic Panel Stat Lipase Stat Magnesium Stat NT-proBNP (BNP-Adult 18+) Stat PTT Partial Thromboplastin Renny Stat Prothrombin Time INR Stat Troponin & CK Cardiac Panel Stat EKG-12 Lead Stat 03/27/25 02:30 Troponin I Stat Discontinued Medications Acetaminophen (Acetaminophen 325 Mg Tablet) 650 mg PO NOW ONE Stop: 03/27/25 04:44 Last Admin: 03/27/25 05:01 Dose: 650 mg Documented By: Aspirin (Aspirin 81 Mg Chew Tab) 324 mg PO NOW ONE Stop: 03/26/25 23:27 Last Admin: 03/26/25 23:44 Dose: 324 mg Documented By: DONTAE Hydroxyzine HCl (Hydroxyzine Hcl 25 Mg Tablet) 50 mg PO NOW ONE Stop: 03/27/25 01:05 Last Admin: 03/27/25 01:18 Dose: 50 mg Documented By: DONTAE Pantoprazole Sodium (Pantoprazole 40 Mg Vial) 40 mg IV NOW ONE Stop: 03/27/25 00:11 Last Admin: 03/27/25 01:18 Dose: Not Given Documented By: DONTAE Pantoprazole Sodium (Pantoprazole Dr 20 Mg Tablet) 20 mg PO NOW ONE Stop: 03/27/25 01:06 Last Admin: 03/27/25 01:18 Dose: 20 mg Documented By: DONTAE Vital Signs Vital signs: Vital Signs - 8 hr 03/26/25 23:22 03/26/25 23:27 03/26/25 23:30 Pulse Rate 98 H 95 H 98 H Respiratory Rate 20 24 Blood Pressure 151/87 H Pulse Oximetry 98 97 95 Oxygen Delivery Method Room Air 03/26/25 23:31 03/26/25 23:31 03/27/25 00:00 Pulse Rate 99 H 88 Respiratory Rate 24 55 H Blood Pressure 136/71 Pulse Oximetry 94 95 Oxygen Delivery Method 03/27/25 00:30 03/27/25 01:00 03/27/25 01:28 Pulse Rate 92 H 94 H Respiratory Rate 24 Blood Pressure 145/67 H Pulse Oximetry 94 96 Oxygen Delivery Method 03/27/25 01:28 03/27/25 01:30 03/27/25 01:31 Pulse Rate 92 H 91 H Respiratory Rate 30 H 34 H Blood Pressure 177/70 H Pulse Oximetry 95 95 Oxygen Delivery Method 03/27/25 01:31 03/27/25 02:00 03/27/25 02:01 Pulse Rate 91 H 96 H 96 H Respiratory Rate 31 H 23 29 H Blood Pressure Pulse Oximetry 95 95 95 Oxygen Delivery Method Room Air 03/27/25 02:01 Pulse Rate Respiratory Rate Blood Pressure 156/73 H Pulse Oximetry Oxygen Delivery Method MDM - Chest Pain Lab Data Attestation: I reviewed the patient's lab results. Lab results narrative: White blood cell count 7400, hemoglobin 14.1, platelets adequate. Glucose 97. BUN 19 with creatinine 1.05, serum CO2 24, normal electrolytes. Liver functions and lipase normal. Troponin negative/unmeasurable. BNP 1070. 03/27/25 00:25 03/27/25 00:25 Labs: Lab Results 03/27/25 Range/Units 00:25 WBC 7.4 (4.5-11.0) X10^3/uL RBC 4.41 (4.0-5.2) X10^6/uL Hgb 14.1 (12.0-16.0) g/dL Hct 42.0 (36-46) % MCV 95.4 (80-100) fL MCH 32.0 (26-34) PG MCHC 33.5 (30-36) % RDW 13.6 (11.6-14.8) % Plt Count 233 (150-400) X10^3/uL Neut % (Auto) 62.4 (50-75) % Lymph % (Auto) 22.9 L (25-40) % [place] % (Auto) 11.9 (3-14) % Eos % (Auto) 1.6 L (2-4) % Baso % (Auto) 1.2 (0-2) % Neut # (Auto) 4600 (1597-0520) /uL Lymph # (Auto) 1700 (3586-3023) /uL [place] # (Auto) 900 (0-900) /uL Eos # (Auto) 100 (0-450) /uL Baso # (Auto) 100 (0-100) /uL PT 10.4 (9.4-12.5) SECONDS INR 0.9 (0.9-1.3) APTT 29 (25.1-36.5) SECONDS Sodium 137 (137-145) mmol/L Potassium 4.0 (3.4-5.1) mmol/L Chloride 107 (98-107) mmol/L Carbon Dioxide 24 (22-32) mmol/L BUN 19 H (7-17) mg/dL Creatinine 1.05 H (0.52-1.04) mg/dL Estimated GFR 53 L (>60) mL/min BUN/Creatinine Ratio 18.1 (6-22) Glucose 97 (70-99) mg/dL Calcium 9.1 (8.4-10.2) mg/dL Magnesium 1.9 (1.6-2.3) mg/dL Total Bilirubin 0.3 (0.2-1.3) mg/dL AST 19 (14-36) IU/L ALT 11 (<35) IU/L Alkaline Phosphatase 85 (38-126) U/L Total Creatine Kinase 67 (30-135) U/L Troponin I < 0.012 (0.01-0.034) ng/mL NT-Pro-B Natriuret Pep 1070 H (<450) pg/mL Total Protein 6.8 (6.3-8.2) g/dL Albumin 4.1 (3.5-5.0) g/dL Globulin 2.7 (1.7-4.1) g/dL Albumin/Globulin Ratio 1.5 (1.0-2.8) Lipase 69 (23-300) U/L Imaging Data Chest x-ray: Radiologist's Impression: [address] [address] XRay Report Signed Patient: Joselin Patrick MR#: [id number] : 1945 Acct:[id number] Age/Sex: 79 / F Date of Service: 03/26/25 Loc: ED Accession Number: [id number] Procedure: XR chest 1V Ordering Provider: Sky Olmedo MD PROCEDURE: XR CHEST 1V INDICATIONS: Chest Pain TECHNIQUE: One view of the chest was acquired. COMPARISON: [facility], CR, XR CHEST 1V, 02/04/2025, 15:57. [facility], CR, XR CHEST 1V, 12/17/2024, 0:08. FINDINGS AND IMPRESSION: No dense airspace disease or pleural effusion on this single view study Aortic calcifications. Normal heart size. Degenerative osseous findings. Dictated by: Norberto Garvin M.D. on 03/26/2025 at 23:58 Approved by: Norberto Garvin M.D. on 03/26/2025 at 23:59 ECG Data Attestation: I personally reviewed and interpreted this ECG as follows: Interpretation: 2338, normal sinus rhythm with occasional PVCs, ventricular rate 96. No obvious ST segment elevation or depression changes. RI 140, QRS 84, QTC 467. MDM Narrative Medical decision making narrative: 79-year-old female with no known history of CAD, has history of SANTO on Nexium acid suppression regimen. History of anxiety. History of paroxysmal atrial fibrillation on metoprolol and aspirin. Afebrile, sirs screen negative. Chest discomfort resolved prior to arrival without specific treatment. EKG, chest x-ray, labs pending. EKG without obvious ischemic changes, sinus rhythm. Chest x-ray, no acute changes. See radiology report. Lab data: White blood cell count 7400, hemoglobin 14.1, platelets adequate. Glucose 97. BUN 19 with creatinine 1.05, serum CO2 24, normal electrolytes. Liver functions and lipase normal. Troponin negative/unmeasurable. BNP 1070 Patient did not want to stay for repeat troponin. Feels better. Continue Nexium, we will add Carafate, prescription sent to her pharmacy. Given oral Protonix dose while here in the department. Had declined IV access. Stable, no obvious emergency condition, further evaluation as an outpatient for now. Antacid strategy as above, suspected SANTO. Further workup as an outpatient for now. Follow up with PCP later this week. Return precautions discussed. Discharge Plan Departure Clinical Impression: Anxiety, Chest pain due to gastrointestinal reflux disease Activity Restrictions/Additional Instructions: History of gastroesophageal reflux on Nexium antacid treatment. Intermittent chest discomfort similar to reflux symptoms. EKG and blood tests not suggestive of heart attack at this time. Chest x-ray showed no acute changes. Oral pantoprazole antacid given. Consider adding Carafate acid binder medication to your Nexium home regimen, prescription sent to your listed pharmacy. You also expressed history of anxiety, no specific treatment recalled, trial of hydroxyzine, dose given in the emergency department, hydroxyzine prescription sent to your listed pharmacy. You requested refill of your metoprolol medication, also sent to your pharmacy. Along with prescriptions for hydroxyzine to help with anxiety, and sucralfate to help with reflux symptoms. Prescriptions: New sucralfate [Carafate] 1 gram tablet 1 g PO BID Qty: 30 0RF hydroxyzine HCl 50 mg tablet 50 mg PO BID PRN (Reason: anxiety) Qty: 30 0RF metoprolol tartrate 25 mg tablet 12.5 mg PO BID Qty: 30 0RF No Action Venlafaxine Hydrochloride (#EFFEXOR) 75 mg PO DAILY Qty: 0 Rx Instructions: 37.5 mg at noon METRONIDAZOLE (#METROGEL) 0.75 dose TP BIDPRN Qty: 0 Fish Oil (#OMEGA 3) 1,000 mg PO BID Qty: 0 topiramate [Topamax] 25 MG capsule, sprinkle 200 mg PO DAILY Qty: 0 esomeprazole magnesium [Nexium] 40 MG capsule,delayed release(DR/EC) 40 mg PO BIDAC Qty: 180 3RF aspirin [Himanshu Low Dose Aspirin] 81 mg Tablet,Delayed Release (Dr/Ec) 81 mg PO DAILY trazodone 100 mg tablet 200 mg PO DAILY metoprolol tartrate 25 mg tablet 12.5 mg PO BID mupirocin 2 % ointment 1 applictn TOP BID Qty: 15 0RF Referrals: Alonzo Suh DO [Primary Care Provider, Family Practice]
[2025-03-27 00:43] LABS: Add Manual Diff / Slide Review NO; Hematocrit 42.0 % (36-46); Hemoglobin 14.1 g/dL (12.0-16.0); Lymphocytes Absolute Auto 1700 /uL (1100-4500); Mean Corpuscular HGB Conc 33.5 % (30-36); Mean Corpuscular Hemoglobin 32.0 PG (26-34); Mean Corpuscular Volume 95.4 fL (80-100); Platelet Count 233 X10^3/uL (150-400)
[2025-03-27 00:49] LABS: INR 0.9 (0.9-1.3); Prothrombin Time 10.4 SECONDS (9.4-12.5)
[2025-03-27 00:52] LABS: PTT Partial Thromboplastin Tim 29 SECONDS (25.1-36.5)
[2025-03-27 00:53] LABS: Alanine Aminotransferase 11 IU/L (<35); Albumin 4.1 g/dL (3.5-5.0); Albumin Globulin Ratio 1.5 (1.0-2.8); Alkaline Phosphatase 85 U/L (38-126); Blood Urea Nitrogen 19 mg/dL (7-17); Calcium 9.1 mg/dL (8.4-10.2); Carbon Dioxide 24 mmol/L (22-32); Chloride 107 mmol/L (98-107); Creatine Kinase 67 U/L (30-135); Estimated Glomerular Filt Rate 53 mL/min (>60); Globulin 2.7 g/dL (1.7-4.1); Glucose 97 mg/dL (70-99); HEMOLYSIS < 15 (0-50); Lipase 69 U/L (23-300); Magnesium 1.9 mg/dL (1.6-2.3); Potassium 4.0 mmol/L (3.4-5.1); Sodium 137 mmol/L (137-145); Total Protein 6.8 g/dL (6.3-8.2)
[2025-03-27 01:05] LABS: NT-proBNP (BNP-Adult 18+) 1070 pg/mL (<450); Troponin I < 0.012 ng/mL (0.01-0.034)
[2025-03-27] MEDS: PANTOPRAZOLE DR 20 MG TABLET PO (01:18)
--- NOTE | 2025-03-27 02:29 | PC.NURSE ---
Called [facility] [phone] spoke with Seble. She advised that they are able to steel pickler the patients prescriptions at [facility]. They do not have transportation services at their facility. Seble stated that she can call and pay for a cab. However, patient states that she does not have the money for a cab. Why can't they come pick me up?.
--- NOTE | 2025-03-27 02:49 | PC.NURSE ---
Called [facility] back in regards to how to get patient back to facility. They gave me daughters contact information Lila [phone], and Christie Scenic Arts Supervisor [phone]. Attempted to call Christie but not available at this time. Will try again at a later time.
--- NOTE | 2025-03-27 04:22 | PC.NURSE ---
Spoke to Daughter Lila in [place] at [phone]. Advised her of the status of her mother. Unable to obtain a ride back to [facility] at this time due to no taxi services. Advised daughter that we have spoken to the facility nurse Seble, and they stated they will warehouse [facility] [place] They do not have transportation for her but daughter states she does have a credit card in her wallet. Patient states that she has left her wallet at her home in her walker. Will attempt to contact Taxi during business hours for transportation back to [facility].
[2025-03-27] MEDS: ACETAMINOPHEN 325 MG TABLET 650 MG PO (05:01)
--- NOTE | 2025-03-27 06:34 | PC.NURSE ---
patient has been discharged since 2 am and declined second troponin or IV. Declined and removed Vitals monitoring equiptment. No last vitals were obtained.
== END 2025-03-27 06:40 | disposition home or self-care (01) ==
PROVIDERS: Emergency Provider Emergency Medicine; PCP Family Medicine
DX: F41.9 Anxiety disorder, unspecified (principal); R07.89 Other chest pain; K21.9 Gastro-esophageal reflux disease without esophagitis
CPT/HCPCS: 71045; 80053; 82550; 83690; 83735; 83880; 84484; 85025; 85610; 85730; 93005; 99283; 99284; A9270